=== PATIENT | male | born 1945 | race Caucasian/White ===

== ENCOUNTER 2019-02-21 00:28 | Emergency (ER) | payer MEDICARE, OTHER ==
[~2019-02-21] VITALS: Ht 175.3 cm; Wt 108.0 kg
[~2019-02-21 00:28] MED LIST: ATOR40TA59 PO; HYDR-2145 PO; LISI40TA PO; METO-239 PO; METO50TA29 PO
--- NOTE | 2019-02-21 00:39 | ED.ADGEN ---
Past History Past Medical History: Anxiety, Arthritis, High Cholesterol, Hypertension, Prostatitis Past Surgical History: Cholecystectomy, Other Alcohol Use: None Drug Use: None Adult General Chief Complaint Chief Complaint ".. I ve been peeing a lot at night... and I just not feeling well tonight.. chills... maybe some fever... " HPI HPI Patient is a 73 year old male who presents with above hx and complaints frequent urination and weakness. Patient did have subjective history of fever and dizziness demonstrate chills after arrival here in the emergency department . She denies any changes in meds. Patient does have a history of prostate problems and has previously seen a urologist. Patient denies any travel or specific ill contacts. Review of Systems Review of Systems Constitutional: History of fever or chills [] Eyes: Denies change in visual acuity, redness, or eye pain [] HENT: Denies nasal congestion or sore throat [] Respiratory: Denies cough or shortness of breath [] Cardiovascular: No additional information not addressed in HPI [] GI: Denies abdominal pain, nausea, vomiting, bloody stools or diarrhea [] : Denies dysuria or hematuria [complaints of frequent urination Musculoskeletal: Denies back pain or joint pain [] Integument: Denies rash or skin lesions [] Neurologic: Denies headache, focal weakness or sensory changes [] Endocrine: Denies polyuria or polydipsia [] All other systems were reviewed and found to be within normal limits, except as documented in this note. Family History Family History Noncontributory Current Medications Current Medications Current Medications Medications (Trade) Dose Ordered Sig/Lee Ann Start Time Stop Time Status Last Admin Dose Admin Aspirin (Children'S Aspirin) 324 mg 1X ONCE 02/21/19 01:00 02/21/19 01:01 DC 02/21/19 02:25 324 MG Lactated Ringer's 1,000 ml @ 100 mls/hr Q10H 02/21/19 01:00 02/21/19 05:30 DC 02/21/19 02:25 100 MLS/HR Allergies Allergies Allergies Coded Allergies Type Severity Reaction Last Updated Verified No Known Drug Allergies 03/19/16 No Physical Exam Physical Exam Constitutional: Moderate acute distress, non-toxic appearance. [] HENT: Normocephalic, atraumatic, bilateral external ears normal, oropharynx moist, no oral exudates, nose normal. [] Eyes: PERRLA, EOMI, conjunctiva normal, no discharge. [] Glasses Neck: Normal range of motion, no tenderness, supple, no stridor. [] Cardiovascular:Heart rate regular rhythm, no murmur []PMI to the left Lungs & Thorax: Bilateral breath sounds equal apex on auscultation [] Abdomen: Bowel sounds normal, soft, no tenderness, no masses, no pulsatile masses. [] Bladder is not distended. No penile discharge. Pt. declined rectal exam. Old surgery scars Skin: Warm, dry, no erythema, no rash. [] Poor turgor Back: No tenderness, no CVA tenderness. [] Extremities: No tenderness, no cyanosis, no clubbing, ROM intact, no edema. []Arthritic changes Neurologic: Alert and oriented X 3, normal motor function, normal sensory function, no focal deficits noted. [] Psychologic: Affect anxious, judgement normal, mood normal. [] Current Patient Data Vital Signs Vital Signs Date Time Temp Pulse Resp B/P (MAP) Pulse Ox O2 Delivery O2 Flow Rate FiO2 02/21/19 03:40 78 18 175/81 (112) 96 Room Air 02/21/19 00:28 98.7 Lab Results Laboratory Tests Test 02/21/19 01:05 02/21/19 01:30 White Blood Count 7.8 x10^3/uL (4.0-11.0) Red Blood Count 4.74 x10^6/uL (4.30-5.70) Hemoglobin 14.4 g/dL (13.0-17.5) Hematocrit 43.4 % (39.0-53.0) Mean Corpuscular Volume 91 fL (79-100) Mean Corpuscular Hemoglobin 30 pg (25-35) Mean Corpuscular Hemoglobin Concent 33 g/dL (31-37) Red Cell Distribution Width 14.6 % (11.5-14.5) H Platelet Count 195 x10^3/uL (140-400) Neutrophils (%) (Auto) 84 % (31-73) H Lymphocytes (%) (Auto) 9 % (24-48) L Monocytes (%) (Auto) 6 % (0-9) Eosinophils (%) (Auto) 1 % (0-3) Basophils (%) (Auto) 1 % (0-3) Neutrophils # (Auto) 6.5 x10^3uL (1.8-7.7) Lymphocytes # (Auto) 0.7 x10^3/uL (1.0-4.8) L Monocytes # (Auto) 0.4 x10^3/uL (0.0-1.1) Eosinophils # (Auto) 0.1 x10^3/uL (0.0-0.7) Basophils # (Auto) 0.1 x10^3/uL (0.0-0.2) Prothrombin Time 10.5 SEC (9.4-11.4) Prothrombin Time INR 1.0 (0.9-1.1) Activated Partial Thromboplast Time 24 SEC (23-33) D-Dimer (Dianne) 0.32 mg/L (0.00-0.50) Sodium Level 142 mmol/L (136-145) Potassium Level 4.0 mmol/L (3.5-5.1) Chloride Level 104 mmol/L (98-107) Carbon Dioxide Level 28 mmol/L (21-32) Anion Gap 10 (6-14) Blood Urea Nitrogen 18 mg/dL (8-26) Creatinine 1.5 mg/dL (0.7-1.3) H Estimated GFR (Cockcroft-Gault) 45.7 Glucose Level 105 mg/dL (70-99) H Calcium Level 8.9 mg/dL (8.5-10.1) Magnesium Level 2.1 mg/dL (1.8-2.4) Total Bilirubin 1.0 mg/dL (0.2-1.0) Direct Bilirubin 0.2 mg/dL (0.0-0.2) Aspartate Amino Transferase (AST) 25 U/L (15-37) Alanine Aminotransferase (ALT) 25 U/L (16-63) Alkaline Phosphatase 49 U/L (46-116) Creatine Kinase 216 U/L (39-308) Troponin I Quantitative < 0.017 ng/mL (0-0.055) Total Protein 6.8 g/dL (6.4-8.2) Albumin 4.3 g/dL (3.4-5.0) Lipase 76 U/L (73-393) Urine Collection Type Unknown Urine Color Yellow Urine Clarity Clear Urine pH 8.0 Urine Specific [place] 1.015 Urine Protein Neg (NEG-TRACE) Urine Glucose (UA) Neg mg/dL (NEG) Urine Ketones (Stick) Neg mg/dL (NEG) Urine Blood Trace (NEG) Urine Nitrite Neg (NEG) Urine Bilirubin Neg (NEG) Urine Urobilinogen Dipstick 0.2 mg/dL (0.2 mg/dL) Urine Leukocyte Esterase Neg (NEG) Urine RBC 0 /HPF (0-2) Urine WBC Occ /HPF (0-4) Urine Squamous Epithelial Cells Few /LPF Urine Bacteria 0 /HPF (0-FEW) Lactic Acid Level 1.2 mmol/L (0.4-2.0) EKG EKG My interpretation EKG shows a sinus rhythm at 71 bpm. No findings of acute morphology[] Radiology/Procedures Radiology/Procedures [][address] [address] IMAGING REPORT Signed PATIENT: CHRISSY ANTHONY ACCOUNT: [id number] : 1945 LOCATION: ER AGE: 73 SEX: M EXAM STATUS: REG ER ORD. PHYSICIAN: BINU CERRATO MD REASON: weakness PROCEDURE: CHEST PA & LATERAL PA and lateral chest x-ray HISTORY: Weakness. FINDINGS: Heart size normal. Mediastinal silhouette is normal. Mild lobulation of the right diaphragm. No pneumothorax, pulmonary opacities or pleural effusions. Bridging anterior thoracic disc osteophytes are present. IMPRESSION: No acute process. Electronically signed by: Marce Menjivar MD (02/21/2019 4:45 AM) [facility] DICTATED AND SIGNED BY: MARCE MENJIVAR MD DATE: 02/21/19 0445 CC: BINU CERRATO MD; TOSHA HUBBARD ~ Course & Med Decision Making Course & Med Decision Making Pertinent Labs and Imaging studies reviewed. (See chart for details) Patient take Tylenol and ibuprofen for discomfort. Patient push fluids. Patient follow-up primary care. Return if any concerns. Recommend follow-up with his urologist because of frequent complaints of urination. He does not appear to have a distended bladder,. [] Final Impression Final Impression 1. Viral Syndrome[] 2. Elevated Creat. 1.5 Dragon Disclaimer Dragon Disclaimer This electronic medical record was generated, in whole or in part, using a voice recognition dictation system. Dragon Disclaimer This chart was dictated in whole or in part using Voice Recognition software in a busy, high-work load, and often noisy Emergency Department environment. It may contain unintended and wholly unrecognized errors or omissions. BINU CERRATO MD Feb 21, 2019 00:39
--- NOTE | 2019-02-21 00:56 | EKG ---
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
[2019-02-21] MEDS ORDERED: ASPIRIN 81 MG TAB.CHEW PO ONE (01:00)
[2019-02-21] MEDS ORDERED: IV RINGERS SOLUTION,LACTATED 1,000 ML IV SCH (01:00)
[2019-02-21 02:06] LABS: BASO # 0.1 x10^3/uL (0.0-0.2); BASO % 1 % (0-3); EOS # 0.1 x10^3/uL (0.0-0.7); EOS % 1 % (0-3); HEMATOCRIT 43.4 % (39.0-53.0); HEMOGLOBIN 14.4 g/dL (13.0-17.5); LYMPH # 0.7 x10^3/uL (1.0-4.8); LYMPH % 9 % (24-48); MEAN CORPUSCULAR HEMOGLOBIN 30 pg (25-35); MEAN CORPUSCULAR HGB CONC 33 g/dL (31-37); MEAN CORPUSCULAR VOLUME 91 fL (79-100); MONO # 0.4 x10^3/uL (0.0-1.1); MONO % 6 % (0-9); NEUT # 6.5 x10^3uL (1.8-7.7); NEUT % 84 % (31-73); PLATELET COUNT 195 x10^3/uL (140-400); RED BLOOD COUNT 4.74 x10^6/uL (4.30-5.70); RED CELL DISTRIBUTION WIDTH 14.6 % (11.5-14.5); WHITE BLOOD COUNT 7.8 x10^3/uL (4.0-11.0)
[2019-02-21 02:15] LABS: ALBUMIN 4.3 g/dL (3.4-5.0); CALCIUM 8.9 mg/dL (8.5-10.1); CREATININE 1.5 mg/dL (0.7-1.3); DIRECT BILIRUBIN 0.2 mg/dL (0.0-0.2); GFR 45.7; MAGNESIUM 2.1 mg/dL (1.8-2.4); TOTAL PROTEIN 6.8 g/dL (6.4-8.2)
[2019-02-21 02:45] LABS: BILIRUBIN,URINE NEG (NEG); CLARITY,URINE CLEAR; COLOR,URINE YELLOW; GLUCOSE,URINE NEG (NEG)
[2019-02-21 02:46] LABS: BACTERIA,URINE 0 /HPF (0-FEW); NITRITE,URINE NEG (NEG); RBC,URINE 0 /HPF (0-2); SQUAMOUS EPITHELIAL CELL,UR FEW /LPF; UROBILINOGEN,URINE 0.2 mg/dL (0.2 mg/dL); WBC,URINE OCC /HPF (0-4)
[2019-02-21] MEDS ORDERED: ONDA8TAB9 PO (02:56)
[2019-02-21 03:40] VITALS: BP 175/81
--- NOTE | 2019-02-21 04:48 | RAD ---
PA and lateral chest x-ray HISTORY: Weakness. FINDINGS: Heart size normal. Mediastinal silhouette is normal. Mild lobulation of the right diaphragm. No pneumothorax, pulmonary opacities or pleural effusions. Bridging anterior thoracic disc osteophytes are present. IMPRESSION: No acute process. Electronically signed by: Juan Menjivar MD (02/21/2019 4:45 AM) [facility]
== END 2019-02-21 03:40 | disposition home or self-care (01) ==
LOC: ER 00:28
DX: B34.9 Viral infection, unspecified (principal); R79.89 Other specified abnormal findings of blood chemistry; F41.9 Anxiety disorder, unspecified; M19.90 Unspecified osteoarthritis, unspecified site; E78.00 Pure hypercholesterolemia, unspecified; R42 Dizziness and giddiness; I10 Essential (primary) hypertension; Z90.49 Acquired absence of other specified parts of digestive tract; Z79.82 Long term (current) use of aspirin
CPT/HCPCS: 36415; 71046; 80048; 80076; 81001; 82550; 83605; 83690; 83735; 84443; 84484; 85025; 85379; 85610; 85730; 87040; 87077; 87205; 93005; 96360; 99285; J7120; 87186

== ENCOUNTER → 2019-08-30 | Outpatient (CLI) | payer MEDICARE ==
[~2019-08-30] MED LIST changes: +ONDA8TAB9 PO
--- NOTE | 2019-08-30 08:42 | RAD ---
Examination: LEFT FEMUR XRAY, HIP LEFT 2 VIEW History: Leg and hip pain Comparison/Correlation: None Findings: Frontal and frog-leg lateral views of the left hip were obtained. Frontal and oblique views of the left femur were provided. Narrowing of the lateral aspect of the left hip joint is evident with minimal subchondral sclerosis. No fracture or bone destruction. Soft tissues are unremarkable. Impression: Moderate narrowing of the lateral aspect of the left hip joint space. Otherwise unremarkable exam. Electronically signed by: Gorge Ma MD (08/30/2019 8:40 AM) [id number]
== END | disposition home or self-care (01) ==
LOC: PMG 07:56
PROVIDERS: ATTEND Physician Assistant Medical
DX: M25.852 Other specified joint disorders, left hip (principal); M79.605 Pain in left leg
CPT/HCPCS: 73502; 73552

== ENCOUNTER 2019-10-15 23:04 | Emergency (ER) | payer MEDICARE ==
[~2019-10-15] VITALS: Ht 180.3 cm; Wt 101.2 kg
--- NOTE | 2019-10-15 23:29 | PHYS DOC ---
Past History Past Medical History: Anxiety, Arthritis, High Cholesterol, Hypertension, Prostatitis Past Surgical History: Cholecystectomy, Other Alcohol Use: None Drug Use: None General Adult EDM: Chief Complaint: HYPERTENSION HPI: HPI: ".. When I laid down.. it felt .. l like. ...my BP was up .. and when I checked it was up.... I ve been taking my meds... it is probably all stress.. I feel better now... " Patient is a 74 year old male who presents with above hx and complaints of accelerated HTN. Patient states he been compliant with his regular meds. Has been been under a lot of emotional stress recently with the of his . Patient normally follows with Jennifer. No recent travel or specific ill contacts. No hx of immunosuppression, No recent travel. Pt. normally follow with Jennifer. Review of Systems: Review of Systems: Constitutional: Denies fever or chills Eyes: Denies change in visual acuity HENT: Denies nasal congestion or sore throat Respiratory: Denies cough or shortness of breath Cardiovascular: Denies chest pain or edema GI: Denies abdominal pain, nausea, vomiting, bloody stools or diarrhea : Denies dysuria Musculoskeletal: Denies back pain or joint pain Integument: Denies rash Neurologic: Denies headache, focal weakness or sensory changes Endocrine: Denies polyuria or polydipsia Lymphatic: Denies swollen glands Psychiatric: Denies depression or anxiety Heart Score: HEART Score for Chest Pain: HEART Score for Chest Pain Response (Comments) Value History Slighlty/Non-Suspicious 0 ECG Normal 0 Age > 65 2 Risk Factors 1 or 2 Risk Factors 1 Total 3 Risk Factors: Risk Factors: DM, Current or recent (<one month) smoker, HTN, HLP, family history of CAD, obesity. Risk Scores: Score 0 - 3: 2.5% MACE over next 6 weeks - Discharge Home Score 4 - 6: 20.3% MACE over next 6 weeks - Admit for Clinical Observation Score 7 - 10: 72.7% MACE over next 6 weeks - Early Invasive Strategies Family History: Family History: Noncontributory to presentation Current Medications: Current Meds: See nursing for home meds Allergies: Allergies: Allergies Coded Allergies Type Severity Reaction Last Updated Verified No Known Drug Allergies 03/19/16 No Physical Exam: PE: Constitutional:external ears normal, oropharynx moist, no oral exudates, nose normal. [] Eyes: PERRLA, EOMI, conjunctiva normal, no discharge. [] Neck: Normal range of motion, no tenderness, supple, no stridor. [] Cardiovascular: Bradycardia heart rate regular rhythm, no murmur [PMI slightly to the left Lungs & Thorax: Bilateral breath sounds clear to auscultation [] Abdomen: Bowel sounds normal, soft, no tenderness, no masses, no pulsatile masses. [] Multiple old surgery scars. Skin: Warm, dry, no erythema, no rash. [] Back: No tenderness, no CVA tenderness. [] Extremities: No tenderness, no cyanosis, no clubbing, ROM intact, no edema. Mild arthritic changes. Neurologic: Alert and oriented X 3, normal motor function, normal sensory function, no focal deficits noted. [] Psychologic: Affect anxious , judgement normal, mood normal. [] EKG: EKG: My interpretation EKG shows a sinus bradycardia rhythm at 59 [] per minute. No findings acute STEMI. Or morphology Radiology/Procedures: Radiology/Procedures: [] Course & Med Decision Making: Course & Med Decision Making Pertinent Labs and Imaging studies reviewed. (See chart for details) Patient to follow-up with Jennifer. Wear current clonidine patch and check blood pressure in the morning. If blood pressure is low removed patch. Patient continue current hypertensive meds as directed. Record blood pressure every morning upon wakening. Keep a record of this and show to your primary care. Return if any concerns. Impression: 1. Accelerated HTN [] Dragon Disclaimer: Jeanette Disclaimer: This electronic medical record was generated, in whole or in part, using a voice recognition dictation system. Departure Departure: Disposition: 01 HOME/RESIDENCE PRIOR TO ADM Condition: STABLE Referrals: TOSHA HUBBARD (PCP) Jeanette Disclaimer This chart was dictated in whole or in part using Voice Recognition software in a busy, high-work load, and often noisy Emergency Department environment. It may contain unintended and wholly unrecognized errors or omissions. BINU CERRATO MD October 15, 2019 23:29
--- NOTE | 2019-10-15 23:36 | EKG ---
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
[2019-10-15] MEDS ORDERED: cloNIDine HCL 0.1 MG TABLET PO ONE (23:45)
[2019-10-15] MEDS ORDERED: cloNIDine TTS-2 1 PATCH PATCH TD ONE (23:45)
[2019-10-16 01:45] VITALS: BP 168/92
== END 2019-10-16 01:50 | disposition home or self-care (01) ==
LOC: ER 23:04
DX: I10 Essential (primary) hypertension (principal); E78.00 Pure hypercholesterolemia, unspecified; M19.90 Unspecified osteoarthritis, unspecified site; F41.9 Anxiety disorder, unspecified
CPT/HCPCS: 93005; 99285

== ENCOUNTER 2020-10-14 17:04 | Observation (INO) | payer MEDICARE ==
[~2020-10-14] VITALS: Ht 180.3 cm; Wt 106.0 kg
[~2020-10-14 17:04] MED LIST changes: -LISI40TA PO; +LISI40TA6 PO
[2020-10-14] MEDS ORDERED: MECLIZINE 12.5 MG TABLET. PO ONE (17:45)
--- NOTE | 2020-10-14 17:47 | PHYS DOC ---
Past History Past Medical History: Anxiety, Depression, High Cholesterol, Hypertension, MS (RITESH SALGUERO MD) Past Surgical History: Cholecystectomy, Tonsillectomy, Other Additional Past Surgical Histo: Left ear (RITESH SALGUERO MD) Alcohol Use: None Drug Use: None (RITESH SALGUERO MD) General Adult EDM: Chief Complaint: DIZZY/LIGHT HEADED HPI: HPI: Patient is a 75-year-old male complaining of "dizziness". Patient describes as both spinning and feel like he might pass out. Says it started abruptly 1 hour prior to arrival when he was sitting on his porch whittling and then went and stood up quickly. Patient states the symptoms are better with rest and laying down but do not completely go away. Are exacerbated by turning his head or sitting up. Has not vomited. Patient denies any headache. Recent had several medication changes but is not sure what he is taking now. Patient states he is compliant with his medication regimen his primary care provider provided. Patient states he took an extra one of his lisinopril was low prior to arrival. Patient also states that he has had loose soft stools for the past 3 weeks. Patient says it was after he got a second Covid vaccine and treatment to that but has not improved. (RITESH SALGUERO MD) Review of Systems: Review of Systems: All other systems within normal limits except for as noted in the HPI (RITESH SALGUERO MD) Allergies: Allergies: Allergies Coded Allergies Type Severity Reaction Last Updated Verified No Known Drug Allergies 03/19/16 No (RITESH SALUGERO MD) Physical Exam: PE: Constitutional: Well developed, well nourished, no acute distress, non-toxic appearance. [] HENT: Normocephalic, atraumatic, bilateral external ears normal, nose normal. [] Eyes: PERRLA, conjunctiva normal, no discharge. [] Neck: No rigidity, supple, no stridor. [] Cardiovascular: Regular rate and rhythm, brisk cap refill [] Lungs & Thorax: Non labored symmetric respirations, no tachypnea or respiratory distress [] Abdomen: Soft, nondistended, left lower quadrant tenderness. Skin: Warm, dry, no erythema, no rash. [] Back: Unremarkable Extremities: No deformities, range of motion grossly intact, no lower extremity edema [] Neurologic: Alert and oriented X 3, no focal deficits noted. [] Psychologic: Affect normal, judgement normal, mood normal. [] (RITESH SALGUERO MD) EKG: EKG: Sinus rhythm with right bundle branch block, heart rate 70 bpm, no ST elevation or depression, no ectopy. Diffuse nonspecific T wave flattening. [] (RITESH SALGUERO MD) Radiology/Procedures: Radiology/Procedures: [] (RITESH SALGUERO MD) Impressions: EXAM: Head CT without contrast. HISTORY: Dizziness. Nausea. Weakness. TECHNIQUE: Computed tomographic images of the head were obtained without contrast. *One or more of the following individualized dose reduction techniques were utilized for this examination: 1. Automated exposure control. 2. Adjustment of the mA and/or kV according to patient size. 3. Use of iterative reconstruction technique. COMPARISON: CT dated 03/15/2019. FINDINGS: There is no acute or subacute extra-axial or intraparenchymal hemorrhage. There is no mass effect or midline shift. There is no hydrocephalus. There are areas of decreased attenuation within the cerebral white matter, nonspecific and likely related to chronic small vessel disease. There is cerebral volume loss. There is a small left choroid fissure cyst. There is focal increased extra-axial space along the lateral right middle cranial fossa due to encephalomalacia or arachnoid cyst. The orbits are unremarkable. There are left mastoidectomy changes. The right mastoid air cells are underpneumatized. No suspicious calvarial lesion is seen. IMPRESSION: 1. No acute intracranial finding. Note is made that MRI is more sensitive for acute infarction. 2. Bilateral cerebral white changes, likely due to chronic small vessel disease. 3. Stable suspected small focus of encephalomalacia or small arachnoid cyst along the lateral right temporal lobe. Electronically signed by: Leidy Lozano MD (10/14/2020 6:05 PM) [facility] DICTATED AND SIGNED BY: LEIDY LOZANO MD DATE: 10/14/20 1800 CC: RITESH SALGUERO MD; TOSHA HUBBARD ~MTH0 0 EXAM: Abdomen and pelvis CT with intravenous contrast. HISTORY: Left lower quadrant pain. TECHNIQUE: Computed tomographic images of the abdomen and pelvis were obtained following the administration of intravenous contrast. Multiplanar reformatting was performed. *One or more of the following individualized dose reduction techniques were utilized for this examination: 1. Automated exposure control. 2. Adjustment of the mA and/or kV according to patient size. 3. Use of iterative reconstruction technique. COMPARISON: None. FINDINGS: Evaluation of the lower thorax demonstrates no infiltrate or pleural effusion. There is minimal right infrahilar and basilar atelectasis. There is a 2.1 cm hypodense lesion within the anterior right hepatic lobe. There are 2.0 cm and 1.8 cm cyst within the right and left hepatic lobes. The gallbladder is absent. The pancreas, spleen and adrenal glands are unremarkable. There is mild left greater than right hydronephrosis and hydroureter. The bladder is distended. There is a partially calcified mass along the right lateral bladder wall projecting into the bladder lumen, measuring 1.9 cm. There is also calcification within the right bladder base. There are multiple small bladder diverticula. There is a heterogeneous enlarged prostate containing multiple calcifications. There is no appendicitis. There is no bowel obstruction. There is distal colonic diverticulosis. There is no definite radiculitis. There is a small fat-contain ing left superior ventral abdominal wall hernia. There are degenerative changes throughout the spine. This results in significant foraminal and central canal stenosis at the mid lower lumbar levels. IMPRESSION: 1. Mild left greater than right hydronephrosis and urinary bladder distention. This is likely due to outlet obstruction given the presence of a heterogeneously enlarged prostate. Correlate with PSA levels. 2. Partially calcified mass along the right bladder wall concerning for urothelial malignancy. There are also bladder and prostate calcifications and bladder diverticula. Correlate with cystoscopy. 3. 2.1 cm indeterminant hypodense lesion within the liver. This may be visible sonographically for further characterization. There are also simple appearing hepatic cysts. 4. Distal colonic diverticulosis. 5. Superior right ventral abdominal wall hernia containing fat. Electronically signed by: Leidy Lozano MD (10/14/2020 6:18 PM) [facility] DICTATED AND SIGNED BY: LEIDY LOZANO MD DATE: 10/14/201812 CC: RITESH SALGUERO MD; TOSHA HUBBARD ~MTH0 0 (MARY ELLEN MADISON DO) Heart Score: C/O Chest Pain: No Risk Factors: Risk Factors: DM, Current or recent (<one month) smoker, HTN, HLP, family history of CAD, obesity. Risk Scores: Score 0 - 3: 2.5% MACE over next 6 weeks - Discharge Home Score 4 - 6: 20.3% MACE over next 6 weeks - Admit for Clinical Observation Score 7 - 10: 72.7% MACE over next 6 weeks - Early Invasive Strategies (RITESH SALGUERO MD) Course & Med Decision Making: Course & Med Decision Making Meclizine ordered, pending work-up at shift change. (RITESH SALGUERO MD) Course & Med Decision Making Patient's labs are unremarkable. His head CT is negative for acute findings. His CT of the abdomen and pelvis does show possible right urinary outlet obstruction due to enlarged prostate and possible bladder tumor. Patient continues to be dizzy and has had right ear drainage. I spoke with Dr. Jolley and he has accepted the patient for admission. (MARY ELLEN MADISON DO) Dragon Disclaimer: Dragon Disclaimer: This electronic medical record was generated, in whole or in part, using a voice recognition dictation system. (RITESH SALGUERO MD) Departure Departure: Impression: Primary Impression: Dizziness Additional Impressions: Hematuria Prostate mass Bladder mass Ear drainage right Disposition: ADMITTED INPATIENT Admitting Physician: Annie Jolley (MARY ELLEN MADISON DO) Condition: STABLE Referrals: TOSHA HUBBARD (PCP) RITESH SALGUERO MD October 14, 2020 17:47 MARY ELLEN MADISON DO October 14, 2020 19:01
[2020-10-14 17:56] LABS: BASO # 0.1 x10^3/uL (0.0-0.2); BASO % 1 % (0-3); EOS # 0.2 x10^3/uL (0.0-0.7); EOS % 2 % (0-3); HEMOGLOBIN 14.7 g/dL (13.0-17.5); LYMPH # 1.6 x10^3/uL (1.0-4.8); LYMPH % 22 % (24-48); MEAN CORPUSCULAR HEMOGLOBIN 30 pg (25-35); MEAN CORPUSCULAR HGB CONC 33 g/dL (31-37); MEAN CORPUSCULAR VOLUME 90 fL (79-100); MONO # 0.8 x10^3/uL (0.0-1.1); MONO % 12 % (0-9); NEUT # 4.5 x10^3uL (1.8-7.7); NEUT % 63 % (31-73); PLATELET COUNT 195 x10^3/uL (140-400); RED BLOOD COUNT 4.92 x10^6/uL (4.30-5.70); RED CELL DISTRIBUTION WIDTH 14.7 % (11.5-14.5); WHITE BLOOD COUNT 7.1 x10^3/uL (4.0-11.0)
[2020-10-14 18:00] LABS: CALCIUM 9.1 mg/dL (8.5-10.1); CREATININE 1.2 mg/dL (0.7-1.3); GFR 58.9; POTASSIUM 3.6 mmol/L (3.5-5.1)
--- NOTE | 2020-10-14 18:07 | RAD ---
EXAM: Head CT without contrast. HISTORY: Dizziness. Nausea. Weakness. TECHNIQUE: Computed tomographic images of the head were obtained without contrast. *One or more of the following individualized dose reduction techniques were utilized for this examina tion: 1. Automated exposure control. 2. Adjustment of the mA and/or kV according to patient size. 3. Use of iterative reconstruction technique. COMPARISON: CT dated 03/15/2019. FINDINGS: There is no acute or subacute extra-axial or intraparenchymal hemorrhage. There is no mass effect or midline shift. There is no hydrocephalus. There are areas of decreased attenuation within the cerebral white matter, nonspecific and likely rel ated to chronic small vessel disease. There is cerebral volume loss. There is a small left choroid fi ssure cyst. There is focal increased extra-axial space along the lateral right middle cranial fossa d ue to encephalomalacia or arachnoid cyst. The orbits are unremarkable. There are left mastoidectomy changes. The right mastoid air cells are un derpneumatized. No suspicious calvarial lesion is seen. IMPRESSION: 1. No acute intracranial finding. Note is made that MRI is more sensitive for acute infarction. 2. Bilateral cerebral white changes, likely due to chronic small vessel disease. 3. Stable suspected small focus of encephalomalacia or small arachnoid cyst along the lateral right t emporal lobe. Electronically signed by: Leidy Sandoval MD (10/14/2020 6:05 PM) [facility]
[2020-10-14 18:15] LABS: ALBUMIN/GLOBULIN RATIO 1.3 (1.0-1.7); MAGNESIUM 2.3 mg/dL (1.8-2.4); PHOSPHORUS 1.9 mg/dL (2.6-4.7); TOTAL BILIRUBIN 0.4 mg/dL (0.2-1.0); TOTAL PROTEIN 7.2 g/dL (6.4-8.2)
[2020-10-14] MEDS ORDERED: IOHEXOL 300 MG/ML 75 ML VIAL. IV ONE (18:15)
--- NOTE | 2020-10-14 18:18 | EKG ---
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
--- NOTE | 2020-10-14 18:21 | RAD ---
EXAM: Abdomen and pelvis CT with intravenous contrast. HISTORY: Left lower quadrant pain. TECHNIQUE: Computed tomographic images of the abdomen and pelvis were obtained following the administ ration of intravenous contrast. Multiplanar reformatting was performed. *One or more of the following individualized dose reduction techniques were utilized for this examina tion: 1. Automated exposure control. 2. Adjustment of the mA and/or kV according to patient size. 3. Use of iterative reconstruction technique. COMPARISON: None. FINDINGS: Evaluation of the lower thorax demonstrates no infiltrate or pleural effusion. There is min imal right infrahilar and basilar atelectasis. There is a 2.1 cm hypodense lesion within the anterior right hepatic lobe. There are 2.0 cm and 1.8 cm cyst within the right and left hepatic lobes. The ga llbladder is absent. The pancreas, spleen and adrenal glands are unremarkable. There is mild left greater than right hydronephrosis and hydroureter. The bladder is distended. There is a partially calcified mass along the right lateral bladder wall projecting into the bladder lumen , measuring 1.9 cm. There is also calcification within the right bladder base. There are multiple sma ll bladder diverticula. There is a heterogeneous enlarged prostate containing multiple calcifications . There is no appendicitis. There is no bowel obstruction. There is distal colonic diverticulosis. Ther e is no definite radiculitis. There is a small fat-containing left superior ventral abdominal wall he rnia. There are degenerative changes throughout the spine. This results in significant foraminal and central canal stenosis at the mid lower lumbar levels. IMPRESSION: 1. Mild left greater than right hydronephrosis and urinary bladder distention. This is likely due to outlet obstruction given the presence of a heterogeneously enlarged prostate. Correlate with PSA leve ls. 2. Partially calcified mass along the right bladder wall concerning for urothelial malignancy. There are also bladder and prostate calcifications and bladder diverticula. Correlate with cystoscopy. 3. 2.1 cm indeterminant hypodense lesion within the liver. This may be visible sonographically for fu rther characterization. There are also simple appearing hepatic cysts. 4. Distal colonic diverticulosis. 5. Superior right ventral abdominal wall hernia containing fat. Electronically signed by: Leidy Sandoval MD (10/14/2020 6:18 PM) [facility]
[2020-10-14 18:45] LABS: BACTERIA,URINE 0 /HPF (0-FEW); BILIRUBIN,URINE NEG (NEG); CLARITY,URINE HAZY; COLOR,URINE YELLOW; GLUCOSE,URINE NEG (NEG); NITRITE,URINE NEG (NEG); RBC,URINE >40 /HPF (0-2); SQUAMOUS EPITHELIAL CELL,UR OCC /LPF; UROBILINOGEN,URINE 0.2 mg/dL (0.2 mg/dL); WBC,URINE OCC /HPF (0-4)
[2020-10-14 20:26] VITALS: BP 183/100
[2020-10-14 23:11] VITALS: BP 145/83
[2020-10-14] MEDS ORDERED: ONDANSETRON PF 4 MG/2 ML VIAL. IVP PRN (23:15)
[2020-10-15 06:42] VITALS: BP 155/85
[2020-10-15 09:17] VITALS: BP_SYST 168; BP_SYST 173; BP_SYST 183; BP_DIAS 80; BP_DIAS 91; BP_DIAS 94
[2020-10-15 11:29] VITALS: BP 178/77
[2020-10-15] MEDS ORDERED: ONDANSETRON ODT 4 MG TAB.RAPDIS PO PRN (14:00)
[2020-10-15] MEDS ORDERED: METOPROLOL SUCC 24HR ER 25 MG TAB.ER.24H. PO SCH (14:00)
[2020-10-15] MEDS: LISINOPRIL 20 MG TABLET PO SCH (14:27)
--- NOTE | 2020-10-15 14:31 | HP ---
ADMIT DATE: 10/14/2020 HISTORY OF PRESENT ILLNESS: The patient is a 75-year-old male patient who presented to the emergency room with a complaint of dizziness described it as both spinning and feels like he might pass out. It started abruptly about an hour prior to arrival when he was sitting on his porch whittling and apparently he went and stood up quickly. The patient states that his symptoms are better with rest and lying down, but did not completely go away, are exacerbated by turning his head or sitting up. He has not vomited. The patient denied any headache, recently had several medication changes, but is not sure what he is taking now. He stated that he is compliant with his medication regimen. His primary provider provided. He stated he took an extra one of his lisinopril, prior to arrival. He stated he has had loose soft stools for the last three weeks. He says it was after he got his second COVID vaccine and treatment, but it has not improved. He apparently has had 3 episodes of dizziness over the last 2 weeks. There was no documented loss of consciousness. He actually drove himself to the emergency room where he was extensively investigated, has had lab work and imaging studies. His lab work appear to be all fairly unremarkable and his urinalysis showed more than 40 rbc's, leukocyte esterase was negative, there was no wbc's and no bacteria. Has had a CT scan of the head, which basically showed no acute intracranial finding. Note is made that the MRI is more sensitive for acute infarction, has bilateral cerebral white changes likely due to chronic small vessel disease, stable. Suspected small focus of encephalomalacia or small arachnoid cyst along the lateral right temporal lobe and the patient also had a CT scan of the abdomen and pelvis with IV contrast, which showed that the patient has mild left greater than right hydronephrosis and urinary bladder distention is likely due to outlet obstruction given the presence of a heterogeneously enlarged prostate, correlate with PSA level, has partially calcified mass along the right bladder wall concerning for urothelial malignancy. There are also bladder and prostate calcification and bladder diverticula. He has a 2.5 cm incidental hypodense lesion within the liver. This may be visible sonographically for further characterization. There are also some simple appearing hepatic cyst. There is severe right ventral abdominal wall hernia containing fat. The patient was given meclizine and was admitted for further evaluation and to consult the neurologist. PAST MEDICAL HISTORY: Significant for hypertension, hyperlipidemia, degenerative disk disease. The patient apparently was told that he has enlarged prostate before. At that time, his was sick and decided to take care of her first. PAST SURGICAL HISTORY: Significant for cholecystectomy, right ear surgery and tonsillectomy. ALLERGIES: He has no known drug allergies. MEDICATIONS: He is currently on the following medication: He is on atorvastatin 40 mg at bedtime, metoprolol succinate 25 mg once a day, lisinopril 40 mg once a day, hydrochlorothiazide 25 mg once a day, ondansetron 8 mg 4 times a day as needed. FAMILY HISTORY: Has one brother,younger and still alive and is generally healthy. Has older sister that does not keep in touch. Father at age of 83 because of acute kidney injury and benign prostatic hypertrophy. Mother at age of 84, had had congestive heart failure. SOCIAL HISTORY: He is , has no children. He never smoked, does not drink alcohol or use any recreational drugs. 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 REVIEW OF SYSTEMS: He is deaf in his left ear. Denied any stuffy nose, nosebleed or postnasal drip. Denied any sore throat, sore tongue, toothache, hoarseness of voice or difficulty swallowing. Denied any nausea, vomiting, diarrhea or constipation. Denies any hematemesis, melena, or hematochezia. Denied any dysuria, frequency or hematuria. Did complain of frequency and nocturia. Denied any chest pain, shortness of breath, orthopnea, paroxysmal nocturnal dyspnea. Denied any cough, phlegm or hemoptysis. PHYSICAL EXAMINATION: GENERAL: On arrival to the emergency room, the patient looked well and was clearly in no apparent respiratory distress. There was no pallor, jaundice, cyanosis, or thyromegaly. No jugular venous distention or limb edema. VITAL SIGNS: His heart rate was 88, blood pressure is 188/100, temperature was 98.1, respiratory rate was 20 and oxygen saturation was 99% on room air. HEAD, EYES, EARS, NOSE, AND THROAT: Normocephalic, atraumatic. NECK: Supple. HEART: Normal first and second heart sounds, no gallop, murmur. CHEST: Clear to auscultation. No crepitation or rhonchi. ABDOMEN: Distended, soft, nontender. NEUROLOGIC: He was awake, alert. All his cranial nerves intact. He moves extremities without difficulty. He ambulates without assistance or assistive devices. LABORATORY DATA: He has had lab work done, which showed a white cell count 7100, hemoglobin 14.7, hematocrit 44, MCV 90 and platelet count of 195,000 with normal manual differential. His serum sodium was 147, potassium 3.6, chloride 108, bicarbonate 27, anion gap of 12, BUN 19, creatinine 1.1, estimated GFR was 58 mL per minute, his glucose 105, calcium was 9.1, phosphorus 1.9, magnesium was 2.3. Total bilirubin, AST, ALT, and alkaline phosphatase are normal. Total protein was 7.2, albumin was 4. His lactic acid was only 0.6. Urinalysis essentially unremarkable except for microscopic hematuria. His CT scan of the abdomen and pelvis showed mild left greater than right hydronephrosis and bladder distention. This is likely due to outlet obstruction. Given the presence of heterogeneously enlarged prostate, correlate with PSA level partially calcified mass along the right bladder wall concerning for urothelial malignancy. There are also bladder and prostate calcification and bladder diverticula correlate with cystoscopy. He has a 2.1 cm indeterminate hypodense lesion within the liver. This may be visible sonographically for further characterization. There are also simple appearing hepatic cyst, distal colonic diverticula, severe right ventral abdominal wall hernia containing fat. His CT scan of the head showed no acute intracranial finding, bilateral cerebral white changes likely due to chronic small vessel disease. In summary, this is a 75-year-old who was admitted with recurrent syncopal episode and what seemed to be vertigo as he feel things spinning around. The symptom worsens by changing his position. He is also known to have hypertension, hyperlipidemia and has bilateral hydronephrosis, enlarged prostate and possible malignant mass in the right bladder wall concerning for urothelial malignancy. Plan is to continue with his medication. We will consult the neurologist. We will check his orthostatics and decide on further management accordingly. DANIEL DR: Tamica TID: [id number]
[2020-10-15 18:04] VITALS: BP 151/88
[2020-10-15 19:20] VITALS: BP 180/98
[2020-10-15] MEDS ORDERED: LORazepam 0.5 MG TABLET PO PRN (19:45)
[2020-10-15] MEDS ORDERED: METOPROLOL SUCC 24HR ER 25 MG TAB.ER.24H. PO ONE (19:45)
[2020-10-15] MEDS: hydrALAZINE 25 MG TABLET PO SCH (20:02)
[2020-10-15] MEDS ORDERED: ATORVASTATIN CALCIUM 20 MG TABLET PO SCH (21:00)
[2020-10-15] MEDS ORDERED: traZODone 50 MG TABLET. PO SCH (21:00)
[2020-10-15 23:37] VITALS: BP 145/81
--- NOTE | 2020-10-16 00:04 | PN ---
DATE: 10/15/2020 SUBJECTIVE: The patient is resting, slightly propped up in bed, in no apparent distress. He has no further episodes of syncope or vertigo. However, he has been mostly in bed since last night. Denied any other complaints. PHYSICAL EXAMINATION: GENERAL: When I examined him this morning, he looked well, was clearly in no apparent distress. No pallor, jaundice, cyanosis, or thyromegaly. No jugular distention. No edema. VITAL SIGNS: Heart rate was 76, blood pressure is 178/77, temperature was 97.7, respiratory rate was 20 and oxygen saturation was 96% on room air. HEAD, EYES, EARS, NOSE AND THROAT: Normocephalic, atraumatic. NECK: Supple. HEART: Showed normal first and second heart sounds, no gallop, murmur. CHEST: Clear to auscultation, no crepitation, no rhonchi. ABDOMEN: Distended, soft, nontender. NEUROLOGIC: He was awake, alert, responding appropriately. All cranial nerves intact. He moves extremities without difficulty. LABORATORY DATA: Still pending at the time of this dictation. ASSESSMENT AND PLAN: Recurrent episode of what seemed to be vertigo versus dizziness and black out. His symptoms are exacerbated by turning his head or sitting up, had no vomiting and therefore, he was admitted. We will reconcile all his medication as his blood pressure continues to be high, we will consult Physical and Occupational Therapy and also consult neurologist. His other problems include hypertension, hyperlipidemia and a CT scan showed that he has bilateral hydronephrosis with a distended bladder and the mass on the right wall of the bladder concerning for urothelial tumor. I will check his PSA and probably once we settled or treat his vertigo, he probably needs to be seen by a urologist as an outpatient for further evaluation and possible cystoscopy and biopsy. JOSI DR: Tamica TID: [id number]
--- NOTE | 2020-10-16 04:48 | CONS ---
DATE OF CONSULTATION: 10/15/2020 REFERRING PHYSICIAN: Annie Jolley MD. REASON FOR CONSULTATION: Recurrent dizzy spells. HISTORY OF PRESENT ILLNESS: This is a 75-year-old right-handed male who was admitted yesterday on account of recurrent dizzy spells described as spinning. The patient has these symptoms intermittently for the last few years, the last one was on the morning of admission when he waked up that morning and felt dizzy. However, he was sitting on the porch for a while, when he stood up quickly, he felt severely dizzy. He describes this feeling as he is going to pass out, but he did not fall down to the floor or injure his head. He denies nausea, vomiting, loss of consciousness, chest pain, shortness of breath or palpitations. The patient had 3 similar episode in the last two weeks. Initial nonenhanced head CT scan revealed no evidence of acute intracranial process. Currently, the patient denies any new neurological complaints. He denies any dizziness, nausea or vomiting. PAST MEDICAL HISTORY: Significant for hypertension, hyperlipidemia, chronic lower back pain secondary to degenerative disk disease, enlarged prostate. The patient had abnormal CT of the abdomen with contrast revealed mild left and right hydronephrosis and urinary bladder distention, probably secondary to enlarged prostate and outlet obstruction. A calcified mass was noted along the right bladder wall. PAST SURGICAL HISTORY: Positive for cholecystectomy, previous left ear injury required surgery and tonsillectomy. FAMILY HISTORY: Father had benign prostate hypertrophy and mother had congestive heart failure. SOCIAL HISTORY: The patient is a . He denies smoking, alcohol drinking or illicit drug use. CURRENT HOME MEDICATIONS: Lipitor 40 mg at bedtime, metoprolol 25 mg once daily, lisinopril 40 mg daily, hydrochlorothiazide 25 mg daily. ALLERGIES: No known drug allergies. REVIEW OF SYSTEMS: A 12-point review of system was performed as mentioned above in the history of present illness. PHYSICAL EXAMINATION: GENERAL: Well-developed, well-nourished male in no acute distress. VITAL SIGNS: Blood pressure 151/88, respiratory rate 20, pulse is 66 and regular, temperature 98.3, oxygen saturation 97% on room air. HEENT: Normocephalic, atraumatic, otherwise unremarkable. NECK: Supple, negative for carotid bruit, lymphadenopathy or thyromegaly. LUNGS: Clear to A and P. CARDIOVASCULAR: Regular rate and rhythm, normal S1, S2. There is no S3, S4 or murmur. ABDOMEN: Soft. Bowel sounds positive. EXTREMITIES: Negative for cyanosis, clubbing or pedal edema. NEUROLOGIC: Mental status: The patient is alert and oriented x 3. Speech is fluent. There is no language dysfunction. Memory, judgment and abstracting thinking are normal. The patient denies hallucination or delusion. Cranial nerves: Visual morrison are full. The pupils are reactive to light and accommodation. Extraocular movements are intact. There is no nystagmus. There is no facial motor or sensory deficit. He is diminished on the left side compared to that on the right side. The palate is elevated symmetrically. Sternocleidomastoid muscles are powerful bilaterally. The patient shrugs his shoulders symmetrically protrudes his tongue in the midline without fasciculation or atrophy. Motor: No focal muscle bulk wasting. The tone is normal. The strength is 5/5 throughout. Sensory: Examination revealed normal pinprick, light touch, vibratory and position senses. Deep tendon reflexes were symmetric and active without pathologic responses. Gait: The stance is steady. The patient is able to walk a few steps in the room. LABORATORY DATA: CBC revealed white blood cells of 7100, hemoglobin 14.7, hematocrit 44, platelet count 195,000. Chemistry revealed sodium of 147, potassium 3.6, chloride 108, CO2 27, BUN 19, creatinine 1.2, glucose 105, calcium 9.1. Liver enzymes are normal. Troponin is normal. Urinalysis is positive for microscopic hematuria. IMPRESSION: 1. Recurrent vertigo induced by quick changes of body positions described as spinning and suggestive of a benign positional vertigo. 2. Multiple medical problems include hypertension, hyperlipidemia, hydronephrosis and enlarged prostate with a possible bladder malignancy. RECOMMENDATIONS: 1. Conservative management and continue with home medications. 2. PT/OT evaluation. 3. Follow up with urologist for enlarged prostate and rule out bladder malignancy. 4. Vestibular exercise. LAMBERTO/GERMAIN/WILLIS DR: Darrius TID: [id number]
[2020-10-16 06:04] VITALS: BP 162/81
[2020-10-16 06:06] LABS: HEMATOCRIT 41.3 % (39.0-53.0); HEMOGLOBIN 13.9 g/dL (13.0-17.5); RED BLOOD COUNT 4.56 x10^6/uL (4.30-5.70); RED CELL DISTRIBUTION WIDTH 14.6 % (11.5-14.5); WHITE BLOOD COUNT 6.6 x10^3/uL (4.0-11.0)
[2020-10-16 06:22] LABS: ALBUMIN 3.2 g/dL (3.4-5.0); ALBUMIN/GLOBULIN RATIO 1.1 (1.0-1.7); CALCIUM 8.5 mg/dL (8.5-10.1); CREATININE 1.4 mg/dL (0.7-1.3); GFR 49.3; POTASSIUM 3.8 mmol/L (3.5-5.1); TOTAL BILIRUBIN 0.5 mg/dL (0.2-1.0)
[2020-10-16] MEDS ORDERED: hydroCHLOROthiazide 25 MG TABLET PO SCH (09:00)
[2020-10-16] MEDS ORDERED: METOPROLOL SUCC 24HR ER 50 MG TAB.ER.24H. PO SCH (09:00)
[2020-10-16] MEDS: hydrALAZINE 25 MG TABLET PO SCH (09:09)
[2020-10-16] MEDS: LISINOPRIL 20 MG TABLET PO SCH (09:10)
--- NOTE | 2020-10-16 10:16 | PN ---
DATE: 10/16/2020 SUBJECTIVE: The patient denies any new medical or neurological complaints; however, he continues to have dizzy spell described as spinning, especially when he changes his body positions quickly from sitting to standing and when he turns his body to the right side. He denies nausea, vomiting, chest pain, shortness of breath, palpitation or headaches. OBJECTIVE: GENERAL: Well-developed, well-nourished male, not in acute distress. VITAL SIGNS: Blood pressure 155/82, respiratory rate 20, pulse is 50, oxygen saturation is 96% on room air. HEENT: Normocephalic, atraumatic, otherwise unremarkable. NECK: Supple. Negative for carotid bruit, lymphadenopathy or thyromegaly. LUNGS: Clear to A and P. CARDIOVASCULAR: Regular rate and rhythm. Normal S1, S2. There is no S3, S4 or murmur. ABDOMEN: Soft. Bowel sounds positive. EXTREMITIES: Negative for cyanosis, clubbing or pedal edema. NEUROLOGIC: Normal mental status and intact cranial nerves except for decreased hearing on the left side. No focal motor or sensory deficit. Deep tendon reflexes are symmetric and active without pathologic responses. Gait: The patient uses a walker for amputation. LABORATORY DATA: CBC revealed white blood cells of 6.6, hemoglobin 13.9, hematocrit 41.3, platelet count 181,000. Chemistry revealed sodium of 148, potassium 3.8, chloride 112, CO2 of 27, BUN 19, creatinine 1.4, glucose 110, calcium 8.5. IMPRESSION: 1. Recurrent vertigo induced by changing of the body positions, described as spinning and when he is standing and turning quickly to the right side. 2. Multiple medical problems to include hypertension, hyperlipidemia, hydronephrosis and enlarged prostate with a possible bladder malignancy. RECOMMENDATIONS: 1. We will continue his current management initiated by Dr. Jolley. 2. PT/OT evaluation. 3. Vestibular exercise. 4. Follow up with urologist for bladder problems. LAMBERTO/SHAKILA DR: Darrius TID: [id number]
[2020-10-16 10:47] VITALS: BP 174/72
--- NOTE | 2020-10-16 17:32 | DS ---
DATE OF DISCHARGE: 10/16/2020 ATTENDING PHYSICIANS: Dr. Jolley and Dr. Hernandez. FINAL DISCHARGE DIAGNOSES: 1. Acute vertigo, improving. 2. Incidental finding of a bladder mass. 3. Prostatism. 4. Partial hydronephrosis. 5. Essential hypertension. 6. Hyperlipidemia. 7. Degenerative disk disease. HISTORY AND PHYSICAL: The patient is a very pleasant 75-year-old gentleman admitted with increasing dizziness and vertiginous symptoms. Please refer to Dr. Jolley's note. As part of the workup, he had a CT abdomen and pelvis which showed evidence of partial hydronephrosis and a definite bladder lesion which is suspicious for malignancy. He was admitted for further treatment and evaluation. PHYSICAL EXAMINATION: Please see the dictated note. PERTINENT LABORATORY AND X-RAY STUDIES: On admission, hemoglobin was 14.7 g/dL, white count 7100. Chemistry panel: Sodium 147 mEq, potassium 3.8 mEq, creatinine is stable at 1.2 mg/dL, BUN 19 mg/dL. Transaminases were normal. Cardiac enzymes negative for coronary ischemia. CT of the abdomen and pelvis showed mild left and right hydronephrosis with urinary bladder distention. This is likely due to bladder outlet ____ with the presence of a heterogeneous enlarged prostate. In addition, there is a partially calcified mass along the right bladder concerning for urothelial malignancy. Cystoscopy was recommended. COURSE IN THE HOSPITAL: The patient was admitted. Urology consultation was entertained. Positional vertigo was identified. He did improve over time. Meclizine was also ordered. We had a long discussion regarding his abnormal CT of the abdomen. He has already seen Dr. Dye, I spoke with Sharron Rodriguez his primary care provider and we will try to get him scheduled with Dr. Dye to a scheduled cystoscopy. Therefore, on the third hospital day, his dizziness symptoms improved. He was able to talk and ambulate without any further issues. At this time, I wrote scripts for Meclizine 25 mg p.o. t.i.d. for the next 5 days. In addition, he will continue his scheduled home meds including the following: Lipitor, hydrochlorothiazide, lisinopril, metoprolol and ondansetron doses unchanged. The patient was then discharged from our hospital in stable condition with explicit drug and followup care. I discussed the case with Sharron Rodriguez. They will arrange for outpatient Urology consultation and cystoscopy and workup of his bladder lesion. Total discharge time spent 38 minutes. FANTASMA/LULU DR: FANTASMA/glynn TID: [id number] CC: TRAM SHIN
== END 2020-10-16 14:40 | disposition home or self-care (01) ==
LOC: ER 17:04 → 1 SOUTH 23:03 → INTOOBSV 23:03
PROVIDERS: ADMIT Internal Medicine; ATTEND Internal Medicine
DX: R55 Syncope and collapse (principal); N32.89 Other specified disorders of bladder; C61 Malignant neoplasm of prostate; I10 Essential (primary) hypertension; E78.5 Hyperlipidemia, unspecified; N13.30 Unspecified hydronephrosis; N40.0 Benign prostatic hyperplasia without lower urinary tract symptoms; I73.9 Peripheral vascular disease, unspecified; I25.2 Old myocardial infarction; F41.9 Anxiety disorder, unspecified; F32.9 Major depressive disorder, single episode, unspecified; E78.00 Pure hypercholesterolemia, unspecified; K57.30 Diverticulosis of large intestine without perforation or abscess without bleeding; N32.3 Diverticulum of bladder; N42.89 Other specified disorders of prostate; R31.9 Hematuria, unspecified; Z90.49 Acquired absence of other specified parts of digestive tract; Z79.899 Other long term (current) drug therapy; Z12.9 Encounter for screening for malignant neoplasm, site unspecified
CPT/HCPCS: 36415; 70450; 74177; 80053; 81001; 83605; 83735; 83880; 84100; 84484; 85025; 85027; 93005; 97112; 97116; 97162; 97166; 97530; 99285; G0103; G0378; Q9967; G0379

== ENCOUNTER 2021-01-25 23:57 | Emergency (ER) | payer MEDICARE ==
[~2021-01-25] VITALS: Ht 180.3 cm; Wt 101.3 kg
[2021-01-26 00:49] VITALS: BP 191/102
[2021-01-26] MEDS ORDERED: ACETAMINOPHEN 500 MG TABLET PO ONE (01:00)
[2021-01-26] MEDS ORDERED: PHENAZOPYRIDINE 200 MG TABLET. PO ONE (01:00)
[2021-01-26 01:13] LABS: CREATININE 1.2 mg/dL (0.7-1.3); GFR 58.9
[2021-01-26 01:16] LABS: BASO # 0.1 x10^3/uL (0.0-0.2); BASO % 0 % (0-3); EOS % 0 % (0-3); HEMATOCRIT 42.2 % (39.0-53.0); HEMOGLOBIN 14.2 g/dL (13.0-17.5); LYMPH # 1.1 x10^3/uL (1.0-4.8); LYMPH % 8 % (24-48); MEAN CORPUSCULAR HEMOGLOBIN 30 pg (25-35); MEAN CORPUSCULAR HGB CONC 34 g/dL (31-37); MEAN CORPUSCULAR VOLUME 89 fL (79-100); MONO # 1.3 x10^3/uL (0.0-1.1); MONO % 9 % (0-9); NEUT # 12.1 x10^3uL (1.8-7.7); NEUT % 83 % (31-73); PLATELET COUNT 186 x10^3/uL (140-400); RED BLOOD COUNT 4.72 x10^6/uL (4.30-5.70); RED CELL DISTRIBUTION WIDTH 13.8 % (11.5-14.5); WHITE BLOOD COUNT 14.6 x10^3/uL (4.0-11.0)
[2021-01-26 01:19] LABS: ALBUMIN 3.7 g/dL (3.4-5.0); ALBUMIN/GLOBULIN RATIO 1.2 (1.0-1.7); BILIRUBIN,URINE NEG (NEG); CLARITY,URINE CLOUDY; COLOR,URINE YELLOW; GLUCOSE,URINE NEG (NEG); TOTAL BILIRUBIN 0.8 mg/dL (0.2-1.0); TOTAL PROTEIN 6.9 g/dL (6.4-8.2)
[2021-01-26 01:20] LABS: BACTERIA,URINE MANY /HPF (0-FEW); NITRITE,URINE NEG (NEG); RBC,URINE >40 /HPF (0-2); SQUAMOUS EPITHELIAL CELL,UR FEW /LPF; UROBILINOGEN,URINE 0.2 mg/dL (0.2 mg/dL); WBC,URINE >40 /HPF (0-4)
--- NOTE | 2021-01-26 01:23 | PHYS DOC ---
Past History Past Medical History: Anxiety, Depression, High Cholesterol, Hypertension, [place] Past Surgical History: Cholecystectomy, Tonsillectomy, Other Additional Past Surgical Histo: Left ear Alcohol Use: None Drug Use: None Adult General Chief Complaint Chief Complaint: ABDOMINAL PAIN HPI HPI Patient is a 75-year-old male with a past medical history significant for BPH who presents with a chief complaint of urinary retention. States he is had trouble urinating since yesterday and when he does, it just dribbles and [place]. States he does have an appointment with the urologist and Cathryn to talk about evaluation and management options. Denies any headaches, fevers, chest pain, shortness of breath, abdominal pain, nausea, vomiting, hematuria. Denies any recent traumas or fevers. Review of Systems Review of Systems Review of systems otherwise unremarkable except noted in HPI Current Medications Current Medications Current Medications Medications (Trade) Dose Ordered Sig/Lee Ann Start Time Stop Time Status Last Admin Dose Admin Acetaminophen (Tylenol) 1,000 mg 1X ONCE 01/26/21 01:00 01/26/21 01:05 DC 01/26/21 01:06 1,000 MG Phenazopyridine HCl (Pyridium) 200 mg 1X ONCE 01/26/21 01:00 01/26/21 01:05 DC 01/26/21 01:06 200 MG Allergies Allergies Allergies Coded Allergies Type Severity Reaction Last Updated Verified No Known Drug Allergies 03/19/16 No Physical Exam Physical Exam Constitutional: Well developed, well nourished, no acute distress, non-toxic appearance. [] HENT: Normocephalic, atraumatic, bilateral external ears normal, oropharynx moist, no oral exudates, nose normal. [] Eyes: conjunctiva normal, no discharge. [] Cardiovascular:Heart rate regular rhythm, no murmur [] Lungs & Thorax: Bilateral breath sounds clear to auscultation [] Abdomen: Bowel sounds normal, soft, no tenderness, no masses, no pulsatile masses. : Normal circumcised penis with normal scrotum, no pain or tenderness or redness [] Skin: Warm, dry, no erythema, no rash. [] Back: no CVA tenderness. [] Extremities: No tenderness, no cyanosis, no clubbing, ROM intact, no edema. [] Neurologic: Alert and oriented X 3, no focal deficits noted. [] Psychologic: Affect normal, judgement normal, mood normal. [] Current Patient Data Vital Signs Vital Signs Date Time Temp Pulse Resp B/P (MAP) Pulse Ox O2 Delivery O2 Flow Rate FiO2 01/26/21 00:49 98.2 74 22 191/102 (131) 99 Room Air EKG EKG [] Radiology/Procedures Radiology/Procedures [] Heart Score C/O Chest Pain: No Risk Factors: Risk Factors: DM, Current or recent (<one month) smoker, HTN, HLP, family history of CAD, obesity. Risk Scores: Risk Factors: DM, Current or recent (<one month) smoker, HTN, HLP, family history of CAD, obesity. Course & Med Decision Making Course & Med Decision Making Patient is a 75-year-old male that presents with urinary retention and a history of BPH waiting to see his urologist next month Vital signs notable for hypertension which improved during visit most likely urinary retention. Patient has had a history of hypertension. Physical exam noted above. Bladder scanner showed about 500 mils in the bladder. Placed Aguayo catheter and had greater than 500 of output with some relief. Patient placed in a leg bag a nd sent home with catheter in place. Given pain management. Given dose of Rocephin due to urinalysis suggestive of urinary tract infection. Started on Keflex at home. Advised to follow-up first thing Wednesday with urologist to set up follow-up as soon as possible. Gave return precautions to the ED. Patient grateful, verbalized understanding agreed with plan of discharge. Dragon Disclaimer Dragon Disclaimer This electronic medical record was generated, in whole or in part, using a voice recognition dictation system. Departure Departure: Impression: Primary Impression: BPH (benign prostatic hyperplasia) Additional Impression: Urinary retention Disposition: HOME / SELF CARE / HOMELESS Condition: GOOD Referrals: TOSHA HUBBARD (PCP) Patient Instructions: Benign Prostatic Hypertrophy, Urinary Retention, Acute, Male Additional Instructions: Thank you for coming into the emergency department tonight and allowing us to take care of you. Please read all the attached information very carefully to go back over things we discussed. Please keep your catheter in place and change your back as demonstrated. Please call your urologist first thing Wednesday morning to update them on your ED visit and the fact that you now have a catheter and the need to be seen next week due to your urinary retention. Please come back to the ED with new or concerning symptoms as discussed. Scripts Cephalexin (KEFLEX) 500 Mg Capsule 1 CAP PO BID for UTI for 7 Days, #14 CAP Prov: HUDSON SAMSON MD 01/26/21 Problem Qualifiers HUDSON SAMSON MD Jan 26, 2021 01:23
[2021-01-26] MEDS ORDERED: ONDANSETRON PF 4 MG/2 ML VIAL. ONE (01:25)
[2021-01-26] MEDS ORDERED: MORPHINE SULFATE 4 MG/ML DISP.SYRIN. ONE (01:25)
[2021-01-26] MEDS ORDERED: IV NORMAL SALINE 50ML 50 ML ONE (01:44)
[2021-01-26] MEDS ORDERED: MORPHINE SULFATE 4 MG/ML DISP.SYRIN. IV ONE (01:45)
[2021-01-26] MEDS ORDERED: ONDANSETRON PF 4 MG/2 ML VIAL. IVP ONE (01:45)
[2021-01-26] MEDS ORDERED: IV RINGERS SOLUTION,LACTATED 1,000 ML IV SCH (01:45)
[2021-01-26] MEDS ORDERED: cefTRIAXone SODIUM 1 GM VIAL ONE (01:45)
[2021-01-26] MEDS ORDERED: CEPH500C PO (01:55)
[2021-01-26] MEDS ORDERED: HYDROcodone/APAP 5/325MG 1 TAB TABLET PO ONE (07:45)
[2021-01-27] MEDS ORDERED: IV RINGERS SOLUTION,LACTATED 1,000 ML IV SCH (01:45)
== END 2021-01-26 09:40 | disposition home or self-care (01) ==
LOC: ER 23:57
DX: N40.1 Benign prostatic hyperplasia with lower urinary tract symptoms (principal); R33.8 Other retention of urine; E78.00 Pure hypercholesterolemia, unspecified; I10 Essential (primary) hypertension; I25.2 Old myocardial infarction; Z90.49 Acquired absence of other specified parts of digestive tract
CPT/HCPCS: 36415; 80053; 81001; 85025; 87086; 96365; 96375; 99284; J0696; J2270; J2405; J7120; 87077

== ENCOUNTER 2021-02-18 08:57 | Inpatient (IN) | payer MEDICARE ==
[~2021-02-18] VITALS: Ht 180.3 cm; Wt 95.6 kg
[~2021-02-18 08:57] MED LIST changes: +CEPH500C PO
[2021-02-18] MEDS ORDERED: IV NORMAL SALINE 1,000ML 1,000 ML IV ONE (09:15)
--- NOTE | 2021-02-18 09:25 | PHYS DOC ---
Past History Past Medical History: Anxiety, Depression, High Cholesterol, Hypertension, [place] Additional Past Medical Histor: possible dementia per brother (ERUM CUMMINS APRN) Past Surgical History: Cholecystectomy, Tonsillectomy, Other Additional Past Surgical Histo: Left ear (ERUM CUMMINS APRN) Alcohol Use: None Drug Use: None (ERUM CUMMINS APRN) General Adult EDM: Chief Complaint: WEAKNESS/GENERALIZED HPI: HPI: Patient is a 75-year-old male who presents to the ER for generalized weakness that started yesterday. Patient's brother reports that he may have had a fever as he was sweating yesterday but they did not check his temperature. Patient is also reporting nausea. Patient had a urinary catheter placed at his primary care provider's office several weeks ago and a leg bag was attached but no StatLock was applied and patient states that his catheter has been falling out but states that no balloon has come out that he is still having urine output in the catheter bag. Patient has a history of dementia and is at baseline mental status per family. Patient also has a history of hypertension and hyperlipidemia. Patient denies pain, vomiting, diarrhea, abdominal pain, chest pain, shortness of breath, fevers, cough. Patient is alert and oriented x4 and able to answer questions appropriately. (ERUM CUMMINS APRN) Review of Systems: Review of Systems: 14 body systems of the review of systems have been reviewed. See HPI for pertinent positive and negative responses, otherwise all other systems are negative, nonpertinent or noncontributory (ERUM CUMMINS APRN) Current Medications: Current Meds: Current Medications Medications (Trade) Dose Ordered Sig/Lee Ann Start Time Stop Time Status Last Admin Dose Admin Sodium Chloride 1,000 ml @ 1,000 mls/hr 1X ONCE 02/18/21 09:15 02/18/21 10:14 (ERUM CUMMINS APRN) Allergies: Allergies: Allergies Coded Allergies Type Severity Reaction Last Updated Verified No Known Drug Allergies 03/19/16 No (ERUM CUMMINS APRN) Physical Exam: PE: Constitutional: Well developed, well nourished, no acute distress, non-toxic appearance. [] HENT: Normocephalic, atraumatic, bilateral external ears normal, oropharynx moist, no oral exudates, nose normal. [] Eyes: PERRL, EOMI, conjunctiva normal, no discharge. [] Neck: Normal range of motion, no stridor Cardiovascular:Heart rate regular rhythm, no murmur [] Lungs & Thorax: Bilateral breath sounds clear to auscultation [] Abdomen: Bowel sounds normal, soft, no tenderness, no masses, no pulsatile masses. [] Skin: Warm, dry, no erythema, no rash. [] Back: No tenderness Extremities: No tenderness, no cyanosis, no clubbing, ROM intact, no edema. [] Neurologic: Alert and oriented X 3, normal motor function, normal sensory function, no focal deficits noted, patient moving all 4 extremities equally, eq ual strength, no pronator drift noted, normal speech. [] Psychologic: Affect normal, judgement normal, mood normal. [] (ERUM CUMMINS APRN) Current Patient Data: Labs: Laboratory Tests Test 02/18/21 09:17 02/18/21 09:21 Urine Collection Type Unknown Urine Color Yellow Urine Clarity Turbid Urine pH 5.5 Urine Specific [place] 1.025 Urine Protein 100 mg/dl Urine Glucose (UA) Neg mg/dL Urine Ketones (Stick) Neg mg/dL Urine Blood Large Urine Nitrite Neg Urine Bilirubin Neg Urine Urobilinogen Dipstick 0.2 mg/dL Urine Leukocyte Esterase Large Urine RBC 11-20 /HPF Urine WBC Tntc /HPF Urine Squamous Epithelial Cells None /LPF Urine Bacteria 0 /HPF White Blood Count 8.9 x10^3/uL Red Blood Count 4.74 x10^6/uL Hemoglobin 14.2 g/dL Hematocrit 42.2 % Mean Corpuscular Volume 89 fL Mean Corpuscular Hemoglobin 30 pg Mean Corpuscular Hemoglobin Concent 34 g/dL Red Cell Distribution Width 13.7 % Platelet Count 283 x10^3/uL Neutrophils (%) (Auto) 76 % Lymphocytes (%) (Auto) 10 % Monocytes (%) (Auto) 9 % Eosinophils (%) (Auto) 5 % Basophils (%) (Auto) 1 % Neutrophils # (Auto) 6.7 x10^3uL Lymphocytes # (Auto) 0.9 x10^3/uL Monocytes # (Auto) 0.8 x10^3/uL Eosinophils # (Auto) 0.4 x10^3/uL Basophils # (Auto) 0.1 x10^3/uL Sodium Level 142 mmol/L Potassium Level 4.0 mmol/L Chloride Level 106 mmol/L Carbon Dioxide Level 22 mmol/L Anion Gap 14 Blood Urea Nitrogen 24 mg/dL Creatinine 1.4 mg/dL Estimated GFR (Cockcroft-Gault) 49.3 BUN/Creatinine Ratio 17 Glucose Level 119 mg/dL Calcium Level 9.1 mg/dL Total Bilirubin 0.8 mg/dL Aspartate Amino Transf (AST/SGOT) 47 U/L Alanine Aminotransferase (ALT/SGPT) 78 U/L Alkaline Phosphatase 217 U/L Troponin I Quantitative < 0.017 ng/mL Total Protein 6.3 g/dL Albumin 3.4 g/dL Albumin/Globulin Ratio 1.2 Current Medications Medications (Trade) Dose Ordered Sig/Lee Ann Route PRN Reason Start Time Stop Time Status Last Admin Dose Admin Sodium Chloride 1,000 ml @ 1,000 mls/hr 1X ONCE IV 02/18/21 09:15 02/18/21 10:14 DC 02/18/21 09:25 Ceftriaxone Sodium 1 gm/ Sodium Chloride 50 ml @ 100 mls/hr 1X ONCE IV 02/18/21 10:15 02/18/21 10:44 Vital Signs: Vital Signs Date Time Temp Pulse Resp B/P (MAP) Pulse Ox O2 Delivery O2 Flow Rate FiO2 02/18/21 09:00 98.3 84 20 160/89 (112) 99 Room Air (ERUM CUMMINS APRN) EKG: EKG: EKG performed at 954 by ER staff shows sinus rhythm, no STEMI read by Dr. Montalvo at 0959 [] (ERUM CUMMINS APRN) Radiology/Procedures: Radiology/Procedures: [] (ERUM CUMMINS APRN) Heart Score: C/O Chest Pain: No Risk Factors: Risk Factors: DM, Current or recent (<one month) smoker, HTN, HLP, family history of CAD, obesity. Risk Scores: Score 0 - 3: 2.5% MACE over next 6 weeks - Discharge Home Score 4 - 6: 20.3% MACE over next 6 weeks - Admit for Clinical Observation Score 7 - 10: 72.7% MACE over next 6 weeks - Early Invasive Strategies (ERUM CUMMINS APRN) Course & Med Decision Making: Course & Med Decision Making Pertinent Labs and Imaging studies reviewed. (See chart for details) [] Patient is a 75-year-old male being seen in the ER for generalized weakness that started yesterday. Patient has a indwelling urinary catheter that has been in place for several weeks and patient states that it fell out slightly due to no StatLock being present. Patient states that he is still having urine output in the catheter bag. Work-up in the ER consisted of urinalysis, blood work, EKG. catheter changed out and 400 cc of urine was drained. Patient tested for COVID-19 and it is pending at this time. Patient's vital signs continue to be stable in the ER. His CBC was unremarkable. His creatinine was 1.4 which is consistent with his previous lab findings. He had a negative troponin. Slight elevation of liver enzymes. Urinalysis showed a urinary tract infection with large leukocytes and too numerous to count white blood cells. I spoke with Dr. Jolley who agreed to admit the patient under his services for generalized weakness and urinary tract infection. Patient given IV antibiotics in the ER. I discussed patient's findings with him and care plan. He is agreeable for admission. Care transferred at this time 1018. (ERUM CUMMINS APRN) Course & Med Decision Making I was the Attending physician on the above date of service of this patient. This patient was evaluated, examined, treated, and dispositioned from the emergency department by the mid-level practitioner. I reviewed care of patient with DROP FORGER HELPER and agreed to plan and disposition as stated Electronically signed, Scotty Aldana DO (SCOTTY ALDANA DO) Jeanette Disclaimer: Jeanette Disclaimer: This electronic medical record was generated, in whole or in part, using a voice recognition dictation system. (ERUM CUMMINS APRN) Departure Departure: Impression: Primary Impression: Generalized weakness Additional Impression: Urinary tract infection Qualified Codes: N30.01 - Acute cystitis with hematuria Disposition: ADMITTED INPATIENT Admitting Physician: Annie Jolley (ERUM CUMMINS APRN) Condition: GOOD Referrals: TOSHA HUBBARD (PCP) ERUM CUMMINS APRN Feb 18, 2021 09:25 SCOTTY ALDANA DO Feb 19, 2021 06:16
[2021-02-18 09:36] LABS: BASO # 0.1 x10^3/uL (0.0-0.2); BASO % 1 % (0-3); EOS # 0.4 x10^3/uL (0.0-0.7); EOS % 5 % (0-3); HEMATOCRIT 42.2 % (39.0-53.0); HEMOGLOBIN 14.2 g/dL (13.0-17.5); LYMPH # 0.9 x10^3/uL (1.0-4.8); LYMPH % 10 % (24-48); MEAN CORPUSCULAR HEMOGLOBIN 30 pg (25-35); MEAN CORPUSCULAR HGB CONC 34 g/dL (31-37); MEAN CORPUSCULAR VOLUME 89 fL (79-100); MONO # 0.8 x10^3/uL (0.0-1.1); MONO % 9 % (0-9); NEUT # 6.7 x10^3uL (1.8-7.7); NEUT % 76 % (31-73); PLATELET COUNT 283 x10^3/uL (140-400); RED BLOOD COUNT 4.74 x10^6/uL (4.30-5.70); RED CELL DISTRIBUTION WIDTH 13.7 % (11.5-14.5); WHITE BLOOD COUNT 8.9 x10^3/uL (4.0-11.0)
[2021-02-18 09:43] LABS: CALCIUM 9.1 mg/dL (8.5-10.1); CREATININE 1.4 mg/dL (0.7-1.3); GFR 49.3
[2021-02-18] MEDS ORDERED: HYDR25TA PO (09:47)
[2021-02-18] MEDS ORDERED: AMLO-187 PO (09:47)
[2021-02-18] MEDS ORDERED: LISI10TA16 PO (09:47)
[2021-02-18] MEDS ORDERED: TAMS0.4C97 PO (09:47)
[2021-02-18] MEDS ORDERED: VENL-109 PO (09:47)
[2021-02-18 09:49] LABS: ALBUMIN 3.4 g/dL (3.4-5.0); ALBUMIN/GLOBULIN RATIO 1.2 (1.0-1.7); TOTAL BILIRUBIN 0.8 mg/dL (0.2-1.0); TOTAL PROTEIN 6.3 g/dL (6.4-8.2)
[2021-02-18 09:49] LABS: BACTERIA,URINE 0 /HPF (0-FEW); BILIRUBIN,URINE NEG (NEG); CLARITY,URINE TURBID; COLOR,URINE YELLOW; GLUCOSE,URINE NEG (NEG); NITRITE,URINE NEG (NEG); UROBILINOGEN,URINE 0.2 mg/dL (0.2 mg/dL); WBC,URINE TNTC /HPF (0-4)
[2021-02-18] MEDS ORDERED: IV NORMAL SALINE 50ML 50 ML ONE (10:17)
[2021-02-18] MEDS ORDERED: cefTRIAXone SODIUM 1 GM VIAL ONE (10:18)
--- NOTE | 2021-02-18 10:18 | EKG ---
[address] [address] Test Date: 2021-02-18 Test Time: 09:54:02 Pat Name: CHRISSY ANTHONY Department: Room: Gender: M Tower Operator: : 1945 Requested By: ERUM CUMMINS Order Number: [id number] Reading MD: Morgan Aguirre Measurements Intervals [place] Rate: 72 P: 69 CT: 210 QRS: 48 QRSD: 94 T: 40 QT: 386 QTc: 424 Interpretive Statements SINUS RHYTHM NORMAL ECG RI6.02 Electronically Signed On 02-18-2021 13:01:13 CDT by Morgan Aguirre
[2021-02-18 12:02] VITALS: BP 169/95
--- NOTE | 2021-02-18 12:35 | NUR ---
PATIENT IS 75 Y O MALE ARRIVED VIA EMS. PATIENT IS A/O X 4, TEARFUL BUT ALSO CHEERFUL UPON ADMISSION, C/O PAIN IN PENIS D/T LOPEZ CATHETER INSERTION. PATIENT WAS ORIENTED TO THE ROOM AND HOSPITAL POLICIES, BELONGINGS OBTAINED, VALUABLES PLACED IN A SAFE BY NURSING DEVELOPMENT DISABILITY SPECIALIST.
[2021-02-18] MEDS ORDERED: hydrOXYzine HCL 25 MG TABLET PO PRN (13:00)
--- NOTE | 2021-02-18 13:11 | HP ---
ADMIT DATE: 02/18/2021 HISTORY OF PRESENT ILLNESS: The patient is a 75-year-old male patient who presented to the Emergency Room of [facility] with generalized weakness that started yesterday. His brother reports that he may have had a fever as he was sweating yesterday, although they have not checked his temperature. The patient is also reporting nausea. Had a urinary catheter placed at his primary care office several weeks ago and a leg bag was attached, but no StatLock was applied and the patient stated that his catheter has been falling out, but stated that no balloon has come out, that he is still having urine output in the catheter bag. He has a history of dementia. He is at the baseline mental status per family. The patient also has a history of hypertension and hyperlipidemia. He denied any vomiting, diarrhea, or abdominal pain. He was extensively investigated in the Emergency Room and has had lab work done that showed his white cell count to be normal. His chemistry was also unremarkable apart from slightly impaired kidney function. His urinalysis showed the urine was yellow, turbid with a pH of 5.5, specific gravity of 1.025. He had small amount of protein. The urine was negative for glucose, ketones, large amount of blood, negative for nitrite. There was large amount of leukocyte esterase, 11-29 rbc's, too numerous to count wbc's, and no bacteria. The patient was admitted with a diagnosis of urinary tract infection and generalized weakness, was started on IV ceftriaxone and was started on normal saline. PAST MEDICAL HISTORY: Significant for hypertension, hyperlipidemia, degenerative disk disease. He also has benign prostatic hypertrophy. PAST SURGICAL HISTORY: Significant for cholecystectomy, right ear surgery and tonsillectomy. ALLERGIES: He has no known drug allergies. MEDICATIONS: He is currently on the following medication: He is on atorvastatin 40 mg at bedtime, metoprolol succinate 25 mg once a day, lisinopril 40 mg once a day, hydrochlorothiazide 25 mg once a day, ondansetron 8 mg 4 times a day. FAMILY HISTORY: He has one brother younger and still alive and is generally healthy. He has an older sister that does not keep in touch. His father at the age of 83 because of acute kidney injury and benign prostatic hypertrophy. Mother at the age of 84 and had had congestive heart failure. SOCIAL HISTORY: He is , has no children. He never smoked, does not drink alcohol or use any recreational drugs. 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 REVIEW OF SYSTEMS: As per history of present illness. PHYSICAL EXAMINATION: GENERAL: On arrival to the emergency room, the patient looked well and was clearly in apparent respiratory distress. No pallor, jaundice, cyanosis, or thyromegaly. No jugular venous distention. No limb edema. VITAL SIGNS: Heart rate was 84, blood pressure 160/89, temperature was 98.3, respiratory rate was 20 and oxygen saturation was 99% on room air. HEAD, EYES, EARS, NOSE, AND THROAT: Normocephalic, atraumatic. NECK: Supple. HEART: Showed normal first and second heart sounds, no gallop or murmur. CHEST: Clear to auscultation. No crepitation or rhonchi. ABDOMEN: Distended, soft, nontender. LABORATORY DATA: Showed a white cell count of 8900, hemoglobin 14, hematocrit 42, MCV 89 and platelet count 283,000. His chemistry showed a serum sodium 142, potassium 4, chloride 106, bicarbonate 22, anion gap of 14, BUN 17. His blood glucose was 119, calcium was 9.1. His AST, ALT were normal. His total protein 6.3, albumin 3.4. ASSESSMENT AND PLAN: The patient was admitted with generalized weakness as well as urinary tract infection. I will reconcile all his medications. Continue with IV ceftriaxone. Await the result of the culture and sensitivity. DORON/SLOANE DR: Tamica TID: [id number]
[2021-02-18] MEDS ORDERED: ACETAMINOPHEN 325 MG TABLET PO PRN (13:45)
[2021-02-18] MEDS: traMADol 50 MG TABLET PO PRN ×2 (13:55→21:39)
[2021-02-18 16:05] VITALS: BP 164/85
[2021-02-18] MEDS: LIDOCAINE 2% TOPICAL JELLY 5GM TUBE. TP PRN (16:35)
[2021-02-18 19:33] VITALS: BP 171/85
--- NOTE | 2021-02-18 23:07 | NUR ---
PT stated his last Aguayo was an accidental removal with balloon still inflated. PT's urine was raeann at shift start. PT tried to defecate and urine changed to bloody with clot burden noted after return to bed. PT given pain medication afterwards. PT resting comfortably.
[2021-02-19 05:58] LABS: BASO # 0.1 x10^3/uL (0.0-0.2); BASO % 1 % (0-3); EOS # 0.5 x10^3/uL (0.0-0.7); EOS % 6 % (0-3); HEMATOCRIT 38.3 % (39.0-53.0); HEMOGLOBIN 12.8 g/dL (13.0-17.5); LYMPH % 13 % (24-48); MEAN CORPUSCULAR HEMOGLOBIN 30 pg (25-35); MEAN CORPUSCULAR HGB CONC 33 g/dL (31-37); MEAN CORPUSCULAR VOLUME 89 fL (79-100); MONO # 0.8 x10^3/uL (0.0-1.1); MONO % 10 % (0-9); NEUT # 5.6 x10^3uL (1.8-7.7); NEUT % 71 % (31-73); PLATELET COUNT 229 x10^3/uL (140-400); RED BLOOD COUNT 4.29 x10^6/uL (4.30-5.70); RED CELL DISTRIBUTION WIDTH 13.8 % (11.5-14.5); WHITE BLOOD COUNT 7.9 x10^3/uL (4.0-11.0)
[2021-02-19 06:14] LABS: ALBUMIN 2.6 g/dL (3.4-5.0); ALBUMIN/GLOBULIN RATIO 0.8 (1.0-1.7); CALCIUM 8.2 mg/dL (8.5-10.1); CREATININE 1.1 mg/dL (0.7-1.3); GFR 65.1; POTASSIUM 3.7 mmol/L (3.5-5.1); TOTAL BILIRUBIN 0.5 mg/dL (0.2-1.0); TOTAL PROTEIN 5.7 g/dL (6.4-8.2)
[2021-02-19 07:39] VITALS: BP 166/77
[2021-02-19] MEDS: LIDOCAINE 2% TOPICAL JELLY 5GM TUBE. TP PRN (08:04)
[2021-02-19] MEDS: TAMSULOSIN 0.4 MG CAP.ER.24H. PO SCH (08:04)
[2021-02-19] MEDS: LISINOPRIL 10 MG TABLET PO SCH (08:05)
[2021-02-19] MEDS: amLODIPine BESYLATE 10 MG TABLET PO SCH (08:05)
[2021-02-19] MEDS: VENLAFAXINE 37.5 MG TABLET. PO SCH (09:00)
[2021-02-19 11:15] VITALS: BP 154/79
[2021-02-19 15:29] VITALS: BP 145/68
[2021-02-19 17:05] VITALS: BP 156/93
[2021-02-19] MEDS ORDERED: MECLIZINE 12.5 MG TABLET. PO PRN (17:45)
--- NOTE | 2021-02-19 17:46 | NUR ---
CONSULT FOR DR HAMMOND HAS BEEN PAGED.
[2021-02-19] MEDS: traMADol 50 MG TABLET PO PRN (20:39)
[2021-02-19] MEDS: LACTOBACILLUS RHAMNOSUS GG 1 CAPSULE. PO SCH (20:39)
--- NOTE | 2021-02-19 20:46 | PN ---
DATE: 02/19/2021 ATTENDING PHYSICIAN: Dr. Jolley/Dr. Hernandez. SUBJECTIVE: The patient is much more confused. I saw him for an admission earlier in the year and he is certainly changing and declining. He does not remember what is going on. He has very little insight. OBJECTIVE: VITAL SIGNS: Blood pressure this morning is 166/77. He is afebrile. Oxygen saturation 97% on room air. HEENT: Head is without trauma. Pupils are reactive. Sclerae is nonicteric. Oropharynx is clear. NECK: Supple. No bruits identified. LABORATORY DATA: Electrolytes showed a creatinine of 1.1 mg/dL. Cardiac enzymes were negative. CBC was all right. I do not have any urine cultures cooking at this time. ASSESSMENT: 1. A 75-year-old gentleman with altered mentation. 2. Urinary tract infection due to chronic indwelling Aguayo catheter. 3. Prostatism and urinary retention. 4. Underlying dementia. 5. Essential hypertension. PLAN: 1. Continue antibiotics as ordered. 2. Leave Aguayo catheter in. 3. We do not have urology consultation capability here. He has seen a urologist in the [place]. 4. I will discuss with his family short and long-term goals. FANTASMA/LOUIS/BRONSON DR: FANTASMA/glynn TID: [id number] CC: RTAM SHIN
--- NOTE | 2021-02-20 05:43 | CONS ---
DATE OF CONSULTATION: 02/19/2021 NEUROLOGICAL CONSULTATION REFERRING PHYSICIAN: Dr. Jolley/Dr. Hernandez. REASON FOR CONSULTATION: Dizziness. HISTORY OF PRESENT ILLNESS: This is a 75-year-old right-handed male who has had a longstanding history of urinary tract infections with indwelling catheter, was admitted on 02/18/2021 on account of lower abdominal discomfort and difficulty with Aguayo catheter. According to the patient these symptoms have been present in the last few days. He stated he presented to Emergency Room with the above complaints in the last few days and they changed his indwelling catheter with another one. The patient thinks that the catheter is out. However, he has been complaining of recurrent urinary tract infections. Neuro consult was requested because of the patient told the nurse today that he has been dizzy today. When I asked the patient about his dizzy spells. He said he usually gets dizzy when he went to bathroom to have bowel movements. When he tried to get up, he felt dizzy, described like a vertigo that lasted approximately 5-10 seconds. He has had dizzy spell mainly when he changes his body positions quickly. Currently, he denies nausea, vomiting, dysarthria, dysphagia, or diplopia. He complains of generalized weakness. He has been using a walker for ambulation. The patient stated she has had longstanding history of hearing loss, mainly in the left ear and he related that to previous ear problem that required surgery. Currently, he denies headaches, visual disturbances, but he complains of generalized weakness. He denies paresthesia. The patient had an extensive workup in the Emergency Room, which revealed evidence of urinary tract infections. PAST MEDICAL HISTORY: Significant for hypertension, hyperlipidemia, benign prostate hypertrophy, chronic low back pain secondary to degenerative disk disease, urinary tract infections, left ear hearing loss. PAST SURGICAL HISTORY: Positive for cholecystectomy, ear surgery and tonsillectomy. ALLERGIES: No known drug allergies. CURRENT HOME MEDICATIONS: Includes Lipitor 40 mg at bedtime, metoprolol 25 mg once daily, lisinopril 40 mg once daily and hydrochlorothiazide 25 mg daily, ondansetron 8 mg 4 times daily for nausea and vomiting. FAMILY HISTORY: Father at age of 83 and had acute kidney disease and benign prostate hypertrophy. Mother at age of 84 and congestive heart failure. SOCIAL HISTORY: The patient is single. He denies smoking, alcohol drinking or illicit drug use. REVIEW OF SYSTEMS: A 10-point review of system was performed as mentioned above. PHYSICAL EXAMINATION: GENERAL: Moderately obese male in no acute distress. He weighs 96 kilos. VITAL SIGNS: Blood pressure 156/93, respiratory rate 20, pulse is 78 and regular, oxygen saturation 98% on room air and temperature is 98.2. HEENT: Normocephalic, atraumatic, otherwise unremarkable. NECK: Supple, negative for carotid bruit, lymphadenopathy or thyromegaly. LUNGS: Clear to A and P. CARDIAC: Regular rate and rhythm. Normal S1, S2. ABDOMEN: Soft. Bowel sounds positive. EXTREMITIES: Negative for cyanosis, clubbing or pedal edema. NEUROLOGIC: Mental status: The patient is alert and oriented x2. The speech is fluent. There is no language dysfunction. Memory, judgment and abstracting thinking are fair. The patient denies hallucination or delusion. Cranial nerves: Visual morrison are full. The pupils are reactive to light and accommodation. The extraocular movements are intact. There is no nystagmus. There is no facial motor or sensory deficits. Hearing is diminished on the left side. The palate is elevated symmetrically. Sternocleidomastoid muscles are powerful bilaterally. The patient shrugs his shoulders symmetrically, protrudes his tongue in the midline without fasciculation or atrophy. Motor Examination: No focal muscle bulk wasting. The tone is normal. The strength is 4/5 throughout. Sensory examination revealed normal pinprick, light touch, vibratory and position senses. Deep tendon reflexes were asymmetric and hypoactive without pathology responses. Gait not tested at this time. LABORATORY DATA: CBC revealed blood cells of 7.9 thousand, hemoglobin 12.8, hematocrit 38.3, platelet count 229,000. Chemistry revealed sodium of 139, potassium 3.7, chloride 107, CO2 of 25, BUN 16, creatinine 1.1, glucose 102, calcium 8.2, alkaline phosphatase is elevated at 64 along with elevated ALT. Troponin level is normal. Urinalysis revealed evidence of urinary tract infections with large urinary leukocyte esterase and numerous white blood cells. IMPRESSION: 1. Intermittent dizzy spell induced by quick changes in his body positions, may represent paroxysmal benign positional vertigo; however, orthostatic hypotension should rule out as well along with dehydration. 2. Urinary tract infections, status post indwelling urinary catheter and frequent urinary tract infections. 3. Recent memory loss, may represent early stage of dementia. 4. Benign prostate hypertrophy. However, his urologist wanted to do a cystoscope to rule out any pathology. 5. Multiple medical problems include hypertension, hyperlipidemia. RECOMMENDATIONS: 1. Continue with current management initiated by Dr. Jolley and Dr. Hernandez. 2. Physical therapy. 3. Vestibular exercise may alleviate the symptoms. 4. The patient is neurologically stable. The patient should have a followup on an outpatient basis to rule out dementia. We will arrange for electroencephalogram. [place] DR: Darrius TID: [id number]
[2021-02-20 06:34] VITALS: BP 145/78
[2021-02-20] MEDS: amLODIPine BESYLATE 10 MG TABLET PO SCH (08:19)
[2021-02-20] MEDS: LACTOBACILLUS RHAMNOSUS GG 1 CAPSULE. PO SCH ×2 (08:19→20:16)
[2021-02-20] MEDS: TAMSULOSIN 0.4 MG CAP.ER.24H. PO SCH (08:19)
[2021-02-20] MEDS: LISINOPRIL 10 MG TABLET PO SCH (08:19)
[2021-02-20] MEDS: VENLAFAXINE 37.5 MG TABLET. PO SCH (08:21)
--- NOTE | 2021-02-20 08:53 | PN ---
DATE: 02/20/2021 ATTENDING PHYSICIAN: Dr. Jolley. SUBJECTIVE: The patient remains weak. His symptoms are vague and nonspecific. He is still very confused. OBJECTIVE FINDINGS: VITAL SIGNS: Blood pressure this morning is 145/78 mmHg, pulse is 76 and regular. He is afebrile. Oxygen saturation 97% on room air. HEENT: Head is without trauma. Pupils are reactive. Sclerae nonicteric. Oropharynx is clear. NECK: Supple, no bruits. LUNGS: Clear. CARDIOVASCULAR: Regular heart tones. ABDOMEN: Soft. EXTREMITIES: Without edema. NEUROLOGIC: Pleasantly confused. LABORATORY DATA: A urine culture grew out greater than 100,000 colonies of Enterococcus faecalis, this is a contaminant because of incontinence. ASSESSMENT: 1. A 75-year-old gentleman with a chronic indwelling Gauayo catheter, resulting in symptomatic urinary tract infection. 2. Probable systemic inflammatory response syndrome. 3. Underlying dementia. 4. Generalized debilitation. 5. Essential hypertension. 6. Prostatism. PLAN: 1. Continue antibiotics as ordered. 2. We have to leave the Aguayo catheter in for drainage. 3. I will discuss with his brother who is the closest relative, he needs long-term care at a long-term. OMI DR: Merna TID: [id number]
[2021-02-20 10:23] VITALS: BP 143/72
--- NOTE | 2021-02-20 11:29 | PN ---
SUBJECTIVE: The patient denies any new medical or neurological complaints. He continues to have dizziness described as spinning when he changes his body positions from sitting to standing. The dizzy spells usually last a few seconds. He denies nausea, vomiting, headaches, chest pain, shortness of breath or palpitation, dysarthria or dysphagia. OBJECTIVE: GENERAL: Well-developed, well-nourished male in no acute distress. VITAL SIGNS: Blood pressure 145/78, respiratory rate 16, pulse is 76 and regular, oxygen saturation is 97% on room air and temperature 98.3. HEENT: Normocephalic, atraumatic, otherwise unremarkable. NECK: Supple, negative for carotid bruit, lymphadenopathy or thyromegaly. LUNGS: Clear to A and P. CARDIOVASCULAR: Regular rate and rhythm, normal S1, S2. There is no S3, S4 or murmur. ABDOMEN: Soft. Bowel sounds positive. EXTREMITIES: Negative for cyanosis, clubbing or pedal edema. NEUROLOGIC: Mental status: The patient is alert and oriented x 2. The speech is fluent. There is no language dysfunction. Memory, judgment and abstracting thinkings are fair. The patient denies hallucination or delusion. Cranial nerves are intact except for the left-sided hearing loss. No focal motor or sensory deficit. The strength is 4/5 throughout. Sensory examination revealed a normal pinprick and light touch senses throughout. Deep tendon reflexes were symmetric and hypoactive with absent Achilles responses. Gait: The stance is steady after a few seconds of standing. IMPRESSION: 1. Frequent, but very short lived dizzy spell when he changed body positions it changes, may represent paroxysmal positional vertigo underlying possible etiologies include dehydration, orthostatic hypotension. 2. Urinary tract infections. 3. Memory loss represent early dementia. 4. Multiple medical problems include hypertension, hyperlipidemia. RECOMMENDATIONS: 1. Continue with current management initiated by Dr. Hernandez. 2. Physical therapy. 3. Hydration. 4. Vestibular exercise. 5. Follow up with Dr. Velasquez on outpatient basis to rule out dementia and possible arrange for electroencephalogram. LAMBERTO/TRE DR: Darrius TID: [id number]
[2021-02-20 14:58] VITALS: BP 153/87
--- NOTE | 2021-02-20 16:25 | NUR ---
nursing note pt in room, crying, offered to sit out of the room for distraction and comfort. pt refused and stated he does not like the crowd.
--- NOTE | 2021-02-20 16:39 | NUR ---
nursing note pt tearful, called Tammy King ordered.
[2021-02-20 19:32] VITALS: BP 146/71
[2021-02-20] MEDS: traMADol 50 MG TABLET PO PRN (20:17)
[2021-02-21 05:44] VITALS: BP 147/64
--- NOTE | 2021-02-21 06:20 | NUR ---
Pt awake in bed watching TV. Pt A&Ox4, able to make needs know. Pt ate HS snack independently and took pills without difficulty. Pt did request a Tramadol at bedtime, for Aguayo/groin discomfort. Pt with dark raeann/bloody urine noted. Pt slept great during night. Pt woke up and asked to do a lap around the alas. Pt completed 1 lap around the unit with x1 assist and walker. Pt stated "That was a great time...Im glad that we did that."
[2021-02-21] MEDS: LACTOBACILLUS RHAMNOSUS GG 1 CAPSULE. PO SCH (09:32)
[2021-02-21 09:33] VITALS: BP 147/64
[2021-02-21] MEDS: LISINOPRIL 10 MG TABLET PO SCH (09:33)
[2021-02-21] MEDS: TAMSULOSIN 0.4 MG CAP.ER.24H. PO SCH (09:33)
[2021-02-21] MEDS: amLODIPine BESYLATE 10 MG TABLET PO SCH (09:33)
[2021-02-21] MEDS: VENLAFAXINE 37.5 MG TABLET. PO SCH (09:33)
--- NOTE | 2021-02-21 11:45 | DS ---
ATTENDING PHYSICIAN: Dr. Jolley. FINAL DISCHARGE DIAGNOSES: 1. Altered mentation, resolved. 2. Urinary tract infection. 3. Prostatism. 4. Chronic indwelling Aguayo catheter. 5. Systemic inflammatory response syndrome. 6. Underlying dementia. 7. Generalized debilitation. HISTORY AND PHYSICAL: The patient is a 75-year-old gentleman who lives alone. last year. He has had prostatism, sees a urologist at [facility]. He has a chronic indwelling Aguayo catheter. He is scheduled for urologic procedure, but we are not there yet. He presented with altered mentation, fevers, confusion and systemic inflammatory response syndrome. PHYSICAL EXAMINATION: Please see the dictated note. PERTINENT LABORATORY AND X-RAY RESULTS: On this admission, his hemoglobin was 14.2 g/dL, white count 8900. Electrolytes within normal range. Nonfasting blood sugar 102. Creatinine 1.1 mg percent. Serology negative for coronavirus. MICROBIOLOGY: Urine cultures did grow greater than 100,000 colonies of Enterococcus faecalis. Whether this is a true contaminant or true pathogen contaminant remains to be seen. Regardless, it was sensitive to CEPHALOSPORINS and QUINOLONES. COURSE IN THE HOSPITAL: The patient was admitted. He had profound confusion, which is getting worse over the last 6 months. He has no other family members at home. , no children. One brother is durable power of commercial real estate attorney. He was treated with 4 days of intravenous antibiotics with marked improvement. Physical therapy worked with the patient. We left the Aguayo catheter in. At this time, he is discharged to the [facility] for subacute rehabilitation. I recommended 5 more days of Levaquin 500 mg p.o. daily. In addition, he will continue his other home meds including the following meds: Amlodipine 10 mg daily, lisinopril 10 mg daily, Flomax 0.4 mg daily and Effexor 37.5 mg daily. His prognosis is guarded. He was discharged from our hospital in stable condition with explicit written and followup care. TOTAL DISCHARGE TIME SPENT: [address]: Merna TID: [id number] CC: TRAM SHIN
--- NOTE | 2021-02-21 11:49 | NUR ---
Nursing note Pt discharged at 1149 via wheelchair accompanied by transportation. pt given written and verbal instructions with verbal statement of understanding received.
== END 2021-02-21 11:51 | DRG 698 ==
LOC: ER 08:57 → 1 SOUTH 10:13
PROVIDERS: ADMIT Internal Medicine; ATTEND Internal Medicine
DX: T83.511A Infection and inflammatory reaction due to indwelling urethral catheter, initial encounter (principal); N17.0 Acute kidney failure with tubular necrosis; R65.10 Systemic inflammatory response syndrome (SIRS) of non-infectious origin without acute organ dysfunction; E78.00 Pure hypercholesterolemia, unspecified; E78.5 Hyperlipidemia, unspecified; F03.90 Unspecified dementia, unspecified severity, without behavioral disturbance, psychotic disturbance, mood disturbance, and anxiety; I10 Essential (primary) hypertension; N40.1 Benign prostatic hyperplasia with lower urinary tract symptoms; N28.9 Disorder of kidney and ureter, unspecified; Y84.6 Urinary catheterization as the cause of abnormal reaction of the patient, or of later complication, without mention of misadventure at the time of the procedure; Z79.899 Other long term (current) drug therapy; Z82.49 Family history of ischemic heart disease and other diseases of the circulatory system; Z87.440 Personal history of urinary (tract) infections; F32.9 Major depressive disorder, single episode, unspecified; F41.9 Anxiety disorder, unspecified; G89.29 Other chronic pain; B95.2 Enterococcus as the cause of diseases classified elsewhere; Z20.822 Contact with and (suspected) exposure to COVID-19
CPT/HCPCS: 36415; 51702; 80053; 81001; 84484; 85025; 87077; 87086; 87186; 87426; 93005; J0696; J2060; U0003; 97110; 97116; 97530; 97535; 99285-25; J7030

== ENCOUNTER 2021-04-02 18:19 | Emergency (ER) | payer OTHER, MEDICARE ==
[~2021-04-02] VITALS: Ht 180.3 cm; Wt 97.3 kg
[~2021-04-02 18:19] MED LIST changes: +AMLO-187 PO; +HYDR25TA PO; +LISI10TA16 PO; +TAMS0.4C97 PO; +VENL-109 PO
[2021-04-02 18:20] VITALS: BP 164/89
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
[2021-04-02] MEDS ORDERED: DIPH,PERTUSS(ACELL),TET VAC/PF 0.5 ML SYRINGE. VAX IM ONE (19:15)
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
== END 2021-04-02 21:41 | disposition home or self-care (01) ==
LOC: ER 18:19
DX: S50.12XA Contusion of left forearm, initial encounter (principal); S60.511A Abrasion of right hand, initial encounter; R51.9 Headache, unspecified; M54.2 Cervicalgia; F41.9 Anxiety disorder, unspecified; F32.9 Major depressive disorder, single episode, unspecified; E78.00 Pure hypercholesterolemia, unspecified; I10 Essential (primary) hypertension; I25.2 Old myocardial infarction; V89.2XXA Person injured in unspecified motor-vehicle accident, traffic, initial encounter; Y93.89 Activity, other specified; Y92.89 Other specified places as the place of occurrence of the external cause; Y99.8 Other external cause status
CPT/HCPCS: 29125; 70450; 72125; 73090; 73130; 90471; 90715; 99285-25

== ENCOUNTER → 2021-10-23 | Outpatient (CLI) | payer MEDICARE ==
--- NOTE | 2021-10-23 09:30 | RAD ---
US RENAL BILAT History: HYDRONEPHROSIS W/ URETERAL STRICTURE Comparison: CT abdomen and pelvis 10/14/2020 Technique: Sonographic examination of the kidneys and bladder. Findings: Right kidney: 10.5 cm length. No focal lesion, calculi or hydronephrosis. Left kidney: 10.8 cm length. No focal lesion, calculi or hydronephrosis. Bladder: No distal ureterectasis. Prevoid volume 353 ml. Postvoid volume 206 ml. Enlarged prostate gl and measures approximately 4.2 x 4.6 x 5.7 cm. Aorta/IVC: Visualized portions are unremarkable. Other: No ascites. Impression: 1. Enlarged prostate with bladder post void residual over 200 mL. 2. No hydronephrosis. Electronically signed by: Rigo Hurst MD (10/23/2021 9:28 AM) [id number]
== END ==
LOC: US 07:42
PROVIDERS: ATTEND Specialist
DX: N40.0 Benign prostatic hyperplasia without lower urinary tract symptoms (principal); N13.1 Hydronephrosis with ureteral stricture, not elsewhere classified
CPT/HCPCS: 76770